=== PATIENT | female | born 1940 | race Caucasian/White ===

== ENCOUNTER 2020-06-17 20:35 | Inpatient (IN) | payer MEDICARE, BC ==
[2020-06-17] MEDS ORDERED: Acetaminophen 325 MG Tab PO PRN (22:02)
[2020-06-17] MEDS ORDERED: Ondansetron 4 MG/2 ML SDV IV PRN (22:02)
[2020-06-17] MEDS ORDERED: Sodium Chloride 0.9% 10 ML Syringe FLUSH PRN ×2 (22:02)
--- NOTE | 2020-06-17 23:45 | PCM.HP.2 ---
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 Patient lives at a long-term care facility in [place], [place] and presented to the [facility] emergency department with complaints of cough, shortness of breath, fatigue, body aches, and increased bilateral lower extremity swelling over the last 5 days. Patient did develop a fever today. Patient is a poor historian so history was mainly obtained through history from [facility] chart. Patient presented to the emergency department with her . Patient was requiring 2 L nasal cannula and swab for COVID-19. That was positive. There was concern that she may worsen overnight and require BiPAP or even ventilatory support, so we worked contacted for transfer. Patient was accepted in transfer. Patient maintain her oxygen saturations in route on 2 L. Chest x- ray showed minimal bilateral basilar atelectasis/consolidations. Of note, she was seen earlier in the week and went home on her home O2. She does use 2 L nasal cannula at bedtime. When patient arrived here she was kept in isolation and continued on 2 L nasal cannula. Bilateral Leg Pain Score (Numeric/FACES): 8 - Related Data Allergies/Adverse Reactions: Allergies Allergy/AdvReac Type Severity Reaction Status Date / Time acyclovir Allergy Other Verified 06/17/20 21:57 Home Medications: Home Meds Albuterol [Take Home: Albuterol 18 GM, 1 INH Pack] 1 puff INH Q4HR PRN 06/18/20 [History] Aspirin [Aspirin EC] 81 mg PO DAILY 06/18/20 [History] Bumetanide [Bumex] 2 mg PO BID 06/18/20 [History] Cyanocobalamin (Vitamin B-12) [Vitamin B-12] 1,000 mcg PO DAILY 06/18/20 [History] Famotidine [Pepcid] 20 mg PO DAILY 06/18/20 [History] Fluticasone/Umeclidin/Vilanter [Trelegy Ellipta 100-62.5-25 MCG] 1 puff INH DAILY 06/18/20 [History] Gabapentin [Neurontin] 200 mg PO BEDTIME 06/18/20 [History] Levothyroxine 75 mcg PO ACBREAKFAST 06/18/20 [History] Losartan [Cozaar] 50 mg PO DAILY 06/18/20 [History] Mirtazapine 15 mg PO BEDTIME 06/18/20 [History] Olopatadine [Pataday 0.2% Ophth Soln] 2 drop EYEBOTH BID PRN 06/18/20 [History] estradioL [Estradiol] 1 mg PO DAILY 06/18/20 [History] Past Medical History HEENT History: Reports: None Cardiovascular History: Reports: Bypass, CAD, Heart Failure, High Cholesterol Respiratory History: Reports: COPD Gastrointestinal History: Reports: None Genitourinary History: Reports: None LMP (Approximate): Menopausal Musculoskeletal History: Reports: None Neurological History: Reports: Other (See Below) (Encephalopathy secondary to viral meningitis) Psychiatric History: Reports: None Endocrine/Metabolic History: Reports: Hypothyroidism Hematologic History: Reports: None Immunologic History: Reports: None - Past Surgical History Head Surgeries/Procedures: Reports: None Female Surgical History: Reports: Hysterectomy Social & Family History - Family History Family Medical History: Unobtainable - Tobacco Use Smoking Status *Q: Former Smoker - Alcohol Use Alcohol Use History: No H&P Review of Systems - Review of Systems: Review Of Systems: Comprehensive ROS is negative, except as noted in HPI. Exam - Exam Exam: See Below - Vital Signs Vital Signs: Last Vital Signs Temp 98.3 Pulse 69 Resp 20 BP 136/62 Pulse Ox 94 L 06/17/20 22:58 Weight: 85.02 kg - Exam Quality Assessment: Supplemental Oxygen General: Alert, Oriented, 4 HEENT: Conjunctiva Clear, Mucosa Moist & [place], Normal Nasal Septum Neck: Supple, Trachea Midline, 2 Lungs: Rales (Bibasilar). No: Normal Respiratory Effort (Mild increased respiratory rate) Cardiovascular: Regular Rate, Regular Rhythm GI/Abdominal Exam: Normal Bowel Sounds, Soft, No Distention Extremities: Normal Inspection, Normal Range of Motion, Non-Tender, No Pedal Edema, Normal Capillary Refill Skin: Warm, Dry, Intact Neuro Extensive - Mental Status: Alert, Normal Mood/Affect, Disorientation to Place, Disorientation to Time. No: Normal Cognition, Memory Intact Neuro Extensive - Motor, Sensory, Reflexes: CN II-XII Intact Psychiatric: Alert, Normal Affect, Normal Mood - Patient Data Lab Results Last 24 hrs: Laboratory Results - last 24 hr 06/17/20 06/17/20 06/17/20 Range/Units 22:36 22:36 22:36 WBC (3.98-10.04) K/mm3 RBC (3.98-5.22) M/mm3 Hgb (11.2-15.7) gm/dl Hct (34.1-44.9) % MCV (79.4-94.8) fl MCH (25.6-32.2) pg MCHC (32.2-35.5) g/dl RDW Std Deviation (36.4-46.3) fL Plt Count (182-369) K/mm3 MPV (9.4-12.3) fl Neut % (Auto) (34.0-71.1) % Lymph % (Auto) (19.3-51.7) % [place] % (Auto) (4.7-12.5) % Eos % (Auto) (0.7-5.8) Baso % (Auto) (0.1-1.2) % Neut # (Auto) (1.56-6.13) K/mm3 Lymph # (Auto) (1.18-3.74) K/mm3 [place] # (Auto) (0.24-0.36) K/mm3 Eos # (Auto) (0.04-0.36) K/mm3 Baso # (Auto) (0.01-0.08) K/mm3 PT 11.1 (9.7-11.7) SECONDS INR 1.04 APTT 26 (22-31) SECONDS D-Dimer, Quantitative 0.71 H (0.19-0.50) mg/L Sodium 135 L (136-145) mEq/L Potassium 4.0 (3.5-5.1) mEq/L Chloride 100 (98-107) mEq/L Carbon Dioxide 24 (21-32) mEq/L Anion Gap 15.0 (5-15) BUN 14 (7-18) mg/dL Creatinine 1.6 H (0.55-1.02) mg/dL Est Cr Clr Drug Dosing TNP Estimated GFR (MDRD) 31 (>60) mL/min BUN/Creatinine Ratio 8.8 L (14-18) Glucose 135 H (83-115) mg/dL Calcium 8.1 L (8.5-10.1) mg/dL Ferritin 241 (8-252) ng/ml Total Bilirubin 0.2 (0.2-1.0) mg/dL Direct Bilirubin 0.10 (0.0-0.2) mg/dl Indirect Bilirubin 0.10 AST 38 H (15-37) U/L ALT 43 (14-59) U/L Alkaline Phosphatase 54 (46-116) U/L Lactate Dehydrogenase 228 (81-234) U/L C-Reactive Protein 4.4 H* (<1.0) mg/dL NT-Pro-B Natriuret Pep (0-450) pg/mL Total Protein 6.9 (6.4-8.2) g/dl Albumin 3.0 L (3.4-5.0) g/dl Globulin 3.9 gm/dL Albumin/Globulin Ratio 0.8 L (1-2) 06/17/20 06/17/20 Range/Units 22:36 22:36 WBC 4.11 (3.98-10.04) K/mm3 RBC 3.61 L (3.98-5.22) M/mm3 Hgb 11.2 (11.2-15.7) gm/dl Hct 35.2 (34.1-44.9) % MCV 97.5 H (79.4-94.8) fl MCH 31.0 (25.6-32.2) pg MCHC 31.8 L (32.2-35.5) g/dl RDW Std Deviation 47.1 H (36.4-46.3) fL Plt Count 172 L (182-369) K/mm3 MPV 8.8 L (9.4-12.3) fl Neut % (Auto) 70.0 (34.0-71.1) % Lymph % (Auto) 24.3 (19.3-51.7) % [place] % (Auto) 5.1 (4.7-12.5) % Eos % (Auto) 0.2 L (0.7-5.8) Baso % (Auto) 0.2 (0.1-1.2) % Neut # (Auto) 2.87 (1.56-6.13) K/mm3 Lymph # (Auto) 1.00 L (1.18-3.74) K/mm3 [place] # (Auto) 0.21 L (0.24-0.36) K/mm3 Eos # (Auto) 0.01 L (0.04-0.36) K/mm3 Baso # (Auto) 0.01 (0.01-0.08) K/mm3 PT (9.7-11.7) SECONDS INR APTT (22-31) SECONDS D-Dimer, Quantitative (0.19-0.50) mg/L Sodium (136-145) mEq/L Potassium (3.5-5.1) mEq/L Chloride (98-107) mEq/L Carbon Dioxide (21-32) mEq/L Anion Gap (5-15) BUN (7-18) mg/dL Creatinine (0.55-1.02) mg/dL Est Cr Clr Drug Dosing Estimated GFR (MDRD) (>60) mL/min BUN/Creatinine Ratio (14-18) Glucose (83-115) mg/dL Calcium (8.5-10.1) mg/dL Ferritin (8-252) ng/ml Total Bilirubin (0.2-1.0) mg/dL Direct Bilirubin (0.0-0.2) mg/dl Indirect Bilirubin AST (15-37) U/L ALT (14-59) U/L Alkaline Phosphatase (46-116) U/L Lactate Dehydrogenase (81-234) U/L C-Reactive Protein (<1.0) mg/dL NT-Pro-B Natriuret Pep 431 (0-450) pg/mL Total Protein (6.4-8.2) g/dl Albumin (3.4-5.0) g/dl Globulin gm/dL Albumin/Globulin Ratio (1-2) Result Diagrams: 06/17/20 22:36 06/17/20 22:36 EKG INTERPRETATION EKG Date: 06/17/20 Rhythm: NSR Rate (Beats/Min): 63 [place]: Normal P-Wave: Present QRS: Normal ST-T: Normal QT: Normal Sepsis Event Note - Focused Exam Vital Signs: Vital Signs Pulse Ox 06/17/20 22:58 94 L - Problem List (1) Pneumonia due to COVID-19 virus SNOMED Code(s): 082817471906693486 ICD Code: U07.1 - COVID-19; J12.89 - OTHER VIRAL PNEUMONIA Status: Acute Current Visit: Yes (2) CHF (congestive heart failure) SNOMED Code(s): 50885389 ICD Code: I50.9 - HEART FAILURE, UNSPECIFIED Status: Acute Current Visit: Yes (3) CAD (coronary artery disease) SNOMED Code(s): 43991424 ICD Code: I25.10 - ATHSCL HEART DISEASE OF [place] CORONARY ARTERY W/O ANG PCTRS Status: Acute Current Visit: Yes (4) COPD (chronic obstructive pulmonary disease) SNOMED Code(s): 90679974 ICD Code: J44.9 - CHRONIC OBSTRUCTIVE PULMONARY DISEASE, UNSPECIFIED Status: Acute Current Visit: Yes (5) Hypothyroidism SNOMED Code(s): 33019705 ICD Code: E03.9 - HYPOTHYROIDISM, UNSPECIFIED Status: Acute Current Visit: Yes (6) Memory loss due to medical condition SNOMED Code(s): 08464015 ICD Code: R41.3 - OTHER AMNESIA Status: Acute Current Visit: Yes (7) Hyperlipemia SNOMED Code(s): 69664057 ICD Code: E78.5 - HYPERLIPIDEMIA, UNSPECIFIED Status: Acute Current Visit: Yes (8) CVA, old, speech/language deficit SNOMED Code(s): 414144662 ICD Code: I69.328 - OTH SPEECH/LANG DEFICITS FOLLOWING CEREBRAL INFARCTION Status: Acute Current Visit: Yes Problem List Initiated/Reviewed/Updated: Yes Orders Last 24hrs: Active Orders 24 hr Category Date Time Status Patient Status [ADT] Routine ADT 06/17/20 22:11 Active Cardiac Monitoring [RC] . DIRECTED Care 06/17/20 22:02 Active EKG Documentation Completion [RC] STAT Care 06/17/20 22:17 Active Oxygen Therapy [RC] PRN Care 06/17/20 22:11 Active Pulse Oximetry [RC] CONTINUOUS Care 06/17/20 22:15 Active RT Incentive Spirometry [RC] ASDIRECTED Care 06/17/20 22:02 Active Up With Assistance [RC] ASDIRECTED Care 06/17/20 22:02 Active VTE/DVT Education [RC] PER UNIT ROUTINE Care 06/17/20 22:11 Active Verify Patient Consent Obtain [RC] ASDIRECTED Care 06/17/20 22:11 Active Vital Signs [RC] Q4H Care 06/17/20 22:11 Active Respiratory Care Assess and Treatment [CONS] Routine Cons 06/17/20 22:02 Active Heart Healthy Diet [DIET] Diet 06/17/20 Dinner Active Chest 1V Frontal [CR] Stat Exams 06/17/20 22:17 Taken ABO/RH TYPE [BBK] Routine Lab 06/17/20 22:36 Received BLOOD GAS ARTERIAL [BG] Stat Lab 06/17/20 22:11 Ordered CULTURE BLOOD [BC] Stat Lab 06/17/20 23:24 Received FRESH FROZEN PLASMA [BBK] Routine Lab 06/17/20 22:36 Received LACTIC ACID [CHEM] Stat Lab 06/17/20 23:30 Received PROCALCITONIN [REF] Stat Lab 06/17/20 22:02 Ordered UA W/TALYA RFLX IF INDICATED [URIN] Routine Lab 06/17/20 22:02 Ordered Acetaminophen [TylenoL] Med 06/17/20 22:02 Active 650 mg PO Q4H PRN Enoxaparin [Lovenox] Med 06/18/20 09:00 Pending 40 mg SUBCUT DAILY Ondansetron [Zofran] Med 06/17/20 22:02 Active 4 mg IV Q4H PRN Remdesivir (Eua) [Remdesivir (EUA)] 100 mg Med 06/18/20 09:00 Pending Sodium Chloride 0.9% [Normal Saline] 100 ml IV DAILY Sodium Chloride 0.9% [Saline Flush] Med 06/17/20 22:02 Active 10 ml FLUSH ASDIRECTED PRN dexAMETHasone [Dexamethasone] Med 06/18/20 09:00 Active 6 mg IVPUSH DAILY Isolation [COMM] Stat Oth 06/17/20 22:11 Ordered RT Acapella [RESPCARE] Routine Oth 06/17/20 22:02 Active Saline Lock Insert [OM.PC] Routine Oth 06/17/20 22:02 Ordered Transfuse Fresh Frozen Plasma [COMM] Routine Oth 06/17/20 22:11 Ordered Resuscitation Status Routine Resus Stat 06/17/20 22:02 Ordered Medication Orders Acetaminophen (Tylenol) 650 mg PO Q4H PRN PRN Reason: Pain (Mild 1-3)/fever Dexamethasone (Dexamethasone) 6 mg IVPUSH DAILY [facility] Stop: 06/27/20 09:01 Enoxaparin Sodium (Lovenox) 40 mg SUBCUT DAILY [facility] Remdesivir 100 mg/ Sodium (Chloride) 100 mls @ 100 mls/hr IV DAILY [facility] Stop: 06/22/20 22:16 Ondansetron HCl (Zofran) 4 mg IV Q4H PRN PRN Reason: Nausea/Vomiting Sodium Chloride (Saline Flush) 10 ml FLUSH ASDIRECTED PRN PRN Reason: Keep Vein Open Assessment/Plan Comment:: 79-year-old female with COPD transferred from [facility] as a direct admit with pneumonia secondary to COVID-19 * Patient requiring 2 L nasal cannula to keep her oxygen saturations in the 90s. * She is on 2 L nasal cannula when she sleeps at home due to COPD and CHF. * Received first dose of dexamethasone 6 mg and Lovenox 40 mg at [facility]. * Minimal respiratory distress * Initial WBC 4.11, INR 1.04, d-dimer 0.71, lactic acid 1.1, CRP 4.4, proBNP 431, albumin 3.0, ABG: pH 7.42, PCO2 of 35.5, PO2 of 71.0, HCO3 22.6, O2 saturation 93.4% on 2 L FiO2 CHF/coronary artery disease/hypertension * BNP normal on admission. * Blood pressure well controlled initially. * Bumex 2 mg twice daily, aspirin 81 mg daily, losartan 50 mg daily * No chest pain Acute versus acute on chronic renal insufficiency * BUN 14, creatinine 1.6, estimated GFR 31, sodium 135 * Unknown history of kidney disease Hypothyroidism Postmenopausal symptoms * Levothyroxine 75 mcg daily * Estradiol 1 mg daily Plan * Admit to medical floor on telemetry and continuous pulse oximetry. * Start COVID specific treatment of remdesivir, convalescent plasma, and dexamethasone. * Follow CBC, CMP, d-dimer, CRP * Continue home meds except Bumex * IV Lasix as needed * FiO2 to keep SPO2 greater than 87% and less than 95% * Continue home rate of FiO2 at 2 L nasal cannula while asleep * Consider echocardiogram. VTE prophylaxis with Lovenox CODE STATUS: Full code Disposition: Admit to floor for treatment of pneumonia secondary to COVID-19 - Mortality Measure Prognosis:: Poor
[2020-06-18] MEDS ORDERED: Sodium Chloride 0.9% 250 ML ONE (08:14)
[2020-06-18] MEDS: Enoxaparin 40 MG/0.4 ML Syringe SUBCUT SCH (08:49)
[2020-06-18] MEDS ORDERED: REMDESIVIR (EUA) 100 MG in Sodium Chloride 0.9% 100 ML IV SCH (09:00)
[2020-06-18] MEDS ORDERED: Dexamethasone 10 MG/ML SDV IVPUSH SCH (09:00)
[2020-06-18] MEDS ORDERED: Furosemide 20 MG/2 ML VIAL IVPUSH ONE (09:34)
[2020-06-18] MEDS ORDERED: Albuterol 6.7 GM Inhaler INH PRN (12:16)
--- NOTE | 2020-06-18 16:18 | PCM.PN ---
- General Info Date of Service: 06/18/20 Admission Dx/Problem (Free Text): Admission Diagnosis/Problem Admission Diagnosis/Problem Viral pneumonia Subjective Update: Patient did well overnight and this morning. She has been weaned down to 1 L nasal cannula. Functional Status: Reports: Pain Controlled - Review of Systems General: Reports: No Symptoms HEENT: Reports: No Symptoms Pulmonary: Reports: Cough Cardiovascular: Reports: No Symptoms Gastrointestinal: Reports: No Symptoms Skin: Reports: No Symptoms Neurological: Reports: Confusion Psychiatric: Reports: Confusion - Patient Data Vitals - Most Recent: Last Vital Signs Temp 97.2 F 06/18/20 09:54 Pulse 74 06/18/20 09:54 Resp 20 06/18/20 09:54 BP 105/60 06/18/20 14:00 Pulse Ox 95 06/18/20 16:00 Weight - Most Recent: 85.02 kg I&O - Last 24 Hours: Intake & Output 06/18/20 06/18/20 06/18/20 06:59 14:59 22:59 Intake Total 200 390 180 Output Total 1100 1250 Balance -900 -860 180 Lab Results Last 24 Hours: Laboratory Results - last 24 hr 06/17/20 06/17/20 06/17/20 Range/Units 22:11 22:36 22:36 WBC (3.98-10.04) K/mm3 RBC (3.98-5.22) M/mm3 Hgb (11.2-15.7) gm/dl Hct (34.1-44.9) % MCV (79.4-94.8) fl MCH (25.6-32.2) pg MCHC (32.2-35.5) g/dl RDW Std Deviation (36.4-46.3) fL Plt Count (182-369) K/mm3 MPV (9.4-12.3) fl Neut % (Auto) (34.0-71.1) % Lymph % (Auto) (19.3-51.7) % [place] % (Auto) (4.7-12.5) % Eos % (Auto) (0.7-5.8) Baso % (Auto) (0.1-1.2) % Neut # (Auto) (1.56-6.13) K/mm3 Lymph # (Auto) (1.18-3.74) K/mm3 [place] # (Auto) (0.24-0.36) K/mm3 Eos # (Auto) (0.04-0.36) K/mm3 Baso # (Auto) (0.01-0.08) K/mm3 PT 11.1 (9.7-11.7) SECONDS INR 1.04 APTT 26 (22-31) SECONDS D-Dimer, Quantitative 0.71 H (0.19-0.50) mg/L Puncture Site Lt radial ABG pH 7.42 (7.35-7.45) ABG pCO2 35.5 (35.0-45.0) mmHg ABG pO2 71.0 L (80.0-100.0) mmHg ABG HCO3 22.6 (22.0-26.0) meq/L ABG O2 Saturation 93.4 L (96.0-97.0) % ABG Base Excess -1.0 (-2-2.0) Ted Test Positive O2 Delivery Device Nasal cannula Oxygen Flow Rate 2.0 Sodium (136-145) mEq/L Potassium (3.5-5.1) mEq/L Chloride (98-107) mEq/L Carbon Dioxide (21-32) mEq/L Anion Gap (5-15) BUN (7-18) mg/dL Creatinine (0.55-1.02) mg/dL Est Cr Clr Drug Dosing Estimated GFR (MDRD) (>60) mL/min BUN/Creatinine Ratio (14-18) Glucose (83-115) mg/dL Lactic Acid (0.4-2.0) mmol/L Calcium (8.5-10.1) mg/dL Ferritin 241 (8-252) ng/ml Total Bilirubin (0.2-1.0) mg/dL Direct Bilirubin (0.0-0.2) mg/dl Indirect Bilirubin AST (15-37) U/L ALT (14-59) U/L Alkaline Phosphatase (46-116) U/L Lactate Dehydrogenase (81-234) U/L C-Reactive Protein (<1.0) mg/dL NT-Pro-B Natriuret Pep (0-450) pg/mL Total Protein (6.4-8.2) g/dl Albumin (3.4-5.0) g/dl Globulin gm/dL Albumin/Globulin Ratio (1-2) Urine Color (Yellow) Urine Appearance (Clear) Urine pH (5.0-8.0) Ur Specific Sinclair (1.005-1.030) Urine Protein (Negative) Urine Glucose (UA) (Negative) Urine Ketones (Negative) Urine Occult Blood (Negative) Urine Nitrite (Negative) Urine Bilirubin (Negative) Urine Urobilinogen (0.2-1.0) Ur Leukocyte Esterase (Negative) Blood Type 06/17/20 06/17/20 06/17/20 Range/Units 22:36 22:36 22:36 WBC 4.11 (3.98-10.04) K/mm3 RBC 3.61 L (3.98-5.22) M/mm3 Hgb 11.2 (11.2-15.7) gm/dl Hct 35.2 (34.1-44.9) % MCV 97.5 H (79.4-94.8) fl MCH 31.0 (25.6-32.2) pg MCHC 31.8 L (32.2-35.5) g/dl RDW Std Deviation 47.1 H (36.4-46.3) fL Plt Count 172 L (182-369) K/mm3 MPV 8.8 L (9.4-12.3) fl Neut % (Auto) 70.0 (34.0-71.1) % Lymph % (Auto) 24.3 (19.3-51.7) % [place] % (Auto) 5.1 (4.7-12.5) % Eos % (Auto) 0.2 L (0.7-5.8) Baso % (Auto) 0.2 (0.1-1.2) % Neut # (Auto) 2.87 (1.56-6.13) K/mm3 Lymph # (Auto) 1.00 L (1.18-3.74) K/mm3 [place] # (Auto) 0.21 L (0.24-0.36) K/mm3 Eos # (Auto) 0.01 L (0.04-0.36) K/mm3 Baso # (Auto) 0.01 (0.01-0.08) K/mm3 PT (9.7-11.7) SECONDS INR APTT (22-31) SECONDS D-Dimer, Quantitative (0.19-0.50) mg/L Puncture Site ABG pH (7.35-7.45) ABG pCO2 (35.0-45.0) mmHg ABG pO2 (80.0-100.0) mmHg ABG HCO3 (22.0-26.0) meq/L ABG O2 Saturation (96.0-97.0) % ABG Base Excess (-2-2.0) Ted Test O2 Delivery Device Oxygen Flow Rate Sodium 135 L (136-145) mEq/L Potassium 4.0 (3.5-5.1) mEq/L Chloride 100 (98-107) mEq/L Carbon Dioxide 24 (21-32) mEq/L Anion Gap 15.0 (5-15) BUN 14 (7-18) mg/dL Creatinine 1.6 H (0.55-1.02) mg/dL Est Cr Clr Drug Dosing TNP Estimated GFR (MDRD) 31 (>60) mL/min BUN/Creatinine Ratio 8.8 L (14-18) Glucose 135 H (83-115) mg/dL Lactic Acid (0.4-2.0) mmol/L Calcium 8.1 L (8.5-10.1) mg/dL Ferritin (8-252) ng/ml Total Bilirubin 0.2 (0.2-1.0) mg/dL Direct Bilirubin 0.10 (0.0-0.2) mg/dl Indirect Bilirubin 0.10 AST 38 H (15-37) U/L ALT 43 (14-59) U/L Alkaline Phosphatase 54 (46-116) U/L Lactate Dehydrogenase 228 (81-234) U/L C-Reactive Protein 4.4 H* (<1.0) mg/dL NT-Pro-B Natriuret Pep (0-450) pg/mL Total Protein 6.9 (6.4-8.2) g/dl Albumin 3.0 L (3.4-5.0) g/dl Globulin 3.9 gm/dL Albumin/Globulin Ratio 0.8 L (1-2) Urine Color (Yellow) Urine Appearance (Clear) Urine pH (5.0-8.0) Ur Specific Sinclair (1.005-1.030) Urine Protein (Negative) Urine Glucose (UA) (Negative) Urine Ketones (Negative) Urine Occult Blood (Negative) Urine Nitrite (Negative) Urine Bilirubin (Negative) Urine Urobilinogen (0.2-1.0) Ur Leukocyte Esterase (Negative) Blood Type A NEGATIVE 06/17/20 06/17/20 06/18/20 Range/Units 22:36 23:30 00:00 WBC (3.98-10.04) K/mm3 RBC (3.98-5.22) M/mm3 Hgb (11.2-15.7) gm/dl Hct (34.1-44.9) % MCV (79.4-94.8) fl MCH (25.6-32.2) pg MCHC (32.2-35.5) g/dl RDW Std Deviation (36.4-46.3) fL Plt Count (182-369) K/mm3 MPV (9.4-12.3) fl Neut % (Auto) (34.0-71.1) % Lymph % (Auto) (19.3-51.7) % [place] % (Auto) (4.7-12.5) % Eos % (Auto) (0.7-5.8) Baso % (Auto) (0.1-1.2) % Neut # (Auto) (1.56-6.13) K/mm3 Lymph # (Auto) (1.18-3.74) K/mm3 [place] # (Auto) (0.24-0.36) K/mm3 Eos # (Auto) (0.04-0.36) K/mm3 Baso # (Auto) (0.01-0.08) K/mm3 PT (9.7-11.7) SECONDS INR APTT (22-31) SECONDS D-Dimer, Quantitative (0.19-0.50) mg/L Puncture Site ABG pH (7.35-7.45) ABG pCO2 (35.0-45.0) mmHg ABG pO2 (80.0-100.0) mmHg ABG HCO3 (22.0-26.0) meq/L ABG O2 Saturation (96.0-97.0) % ABG Base Excess (-2-2.0) Ted Test O2 Delivery Device Oxygen Flow Rate Sodium (136-145) mEq/L Potassium (3.5-5.1) mEq/L Chloride (98-107) mEq/L Carbon Dioxide (21-32) mEq/L Anion Gap (5-15) BUN (7-18) mg/dL Creatinine (0.55-1.02) mg/dL Est Cr Clr Drug Dosing Estimated GFR (MDRD) (>60) mL/min BUN/Creatinine Ratio (14-18) Glucose (83-115) mg/dL Lactic Acid 1.1 (0.4-2.0) mmol/L Calcium (8.5-10.1) mg/dL Ferritin (8-252) ng/ml Total Bilirubin (0.2-1.0) mg/dL Direct Bilirubin (0.0-0.2) mg/dl Indirect Bilirubin AST (15-37) U/L ALT (14-59) U/L Alkaline Phosphatase (46-116) U/L Lactate Dehydrogenase (81-234) U/L C-Reactive Protein (<1.0) mg/dL NT-Pro-B Natriuret Pep 431 (0-450) pg/mL Total Protein (6.4-8.2) g/dl Albumin (3.4-5.0) g/dl Globulin gm/dL Albumin/Globulin Ratio (1-2) Urine Color Yellow (Yellow) Urine Appearance Clear (Clear) Urine pH 6.5 (5.0-8.0) Ur Specific Sinclair 1.020 (1.005-1.030) Urine Protein Negative (Negative) Urine Glucose (UA) Negative (Negative) Urine Ketones Negative (Negative) Urine Occult Blood Negative (Negative) Urine Nitrite Negative (Negative) Urine Bilirubin Negative (Negative) Urine Urobilinogen 0.2 (0.2-1.0) Ur Leukocyte Esterase Negative (Negative) Blood Type Aj Results Last 24 Hours: Microbiology 06/17/20 23:24 Anaerobic Blood Culture - Final Blood Med Orders - Current: Current Medications Acetaminophen (Tylenol) 650 mg PO Q4H PRN PRN Reason: Pain (Mild 1-3)/fever Albuterol (Proventil Hfa) 0 gm INH Q4H PRN PRN Reason: Shortness of Breath Aspirin (Halfprin) 81 mg PO DAILY [facility] Cyanocobalamin (Vitamin B12) 1,000 mcg PO DAILY [facility] Dexamethasone (Dexamethasone) 6 mg PO DAILY [facility] Stop: 06/27/20 09:01 Enoxaparin Sodium (Lovenox) 40 mg SUBCUT DAILY [facility] Last Admin: 10/07/20 08:49 Dose: 40 mg Documented by: Estradiol (Estradiol) 1 mg PO DAILY [facility] Gabapentin (Neurontin) 200 mg PO BEDTIME [facility] Remdesivir 100 mg/ Sodium (Chloride) 100 mls @ 100 mls/hr IV Q24H [facility] Stop: 06/21/20 22:59 Levothyroxine Sodium (Levothyroxine) 75 mcg PO ACBREAKFAST [facility] Losartan Potassium (Cozaar) 50 mg PO DAILY [facility] Mirtazapine (Remeron) 15 mg PO BEDTIME [facility] Ondansetron HCl (Zofran) 4 mg IV Q4H PRN PRN Reason: Nausea/Vomiting Fluticasone/Umeclidin/Vilanter Inhaler 0 each INH DAILY [facility] Sodium Chloride (Saline Flush) 10 ml FLUSH ASDIRECTED PRN PRN Reason: Keep Vein Open Discontinued Medications Dexamethasone (Dexamethasone) 6 mg IVPUSH DAILY [facility] Stop: 06/27/20 09:01 Last Admin: 06/18/20 08:50 Dose: 6 mg Documented by: Furosemide (Lasix) 20 mg IVPUSH NOW ONE Stop: 06/18/20 09:35 Last Admin: 06/18/20 09:53 Dose: 20 mg Documented by: Remdesivir 200 mg/ Sodium (Chloride) 250 mls @ 250 mls/hr IV ONETIME ONE Stop: 06/17/20 22:03 Last Admin: 06/17/20 23:25 Dose: 250 mls/hr Documented by: Remdesivir 100 mg/ Sodium (Chloride) 100 mls @ 100 mls/hr IV DAILY [facility] Stop: 06/22/20 22:16 Sodium Chloride (Normal Saline) Confirm Administered Dose 250 mls @ as directed .ROUTE .STK-MED ONE Stop: 06/18/20 08:15 Last Admin: 06/18/20 08:56 Dose: 50 mls/hr Documented by: Sodium Chloride (Saline Flush) 10 ml FLUSH ASDIRECTED PRN PRN Reason: Keep Vein Open - Exam Quality Assessment: Supplemental Oxygen, Urine Catheter General: Alert, Oriented HEENT: Pupils Equal, Mucous Membr. Moist/[place] Lungs: Normal Respiratory Effort, Rales (Bibasilar) Cardiovascular: Regular Rate, Regular Rhythm GI/Abdominal Exam: Normal Bowel Sounds, Soft, No Distention Extremities: Normal Inspection, No Pedal Edema, Normal Capillary Refill Skin: Warm, Dry, Intact Neurological: No New Focal Deficit Psy/Mental Status: Alert Sepsis Event Note - Evaluation Sepsis Screening Result: No Definite Risk - Focused Exam Vital Signs: Vital Signs Temp Pulse Pulse Resp BP BP Pulse Ox 06/18/20 16:00 06/18/20 14:16 95 06/18/20 14:02 96 06/18/20 14:00 105/60 92 L 06/18/20 13:43 105/60 93 L 06/18/20 13:42 85 L 06/18/20 13:00 89 L 06/18/20 12:00 89 L 06/18/20 11:00 95 06/18/20 10:00 94 L 06/18/20 09:54 97.2 F 74 20 140/63 97 06/18/20 09:53 140/63 94 L 06/18/20 09:51 94 L 06/18/20 09:38 06/18/20 09:01 93 L 06/18/20 09:00 91 L 06/18/20 08:43 56 L 135/70 94 L 06/18/20 08:42 97.2 F 66 50 L 18 135/70 92 L 06/18/20 08:41 79 99 06/18/20 08:01 143/59 H 06/18/20 07:15 47 L 92 L 06/18/20 07:00 55 L 96 06/18/20 06:15 75 94 L 06/18/20 05:00 72 96 Pulse Ox 06/18/20 16:00 95 06/18/20 14:16 06/18/20 14:02 06/18/20 14:00 06/18/20 13:43 06/18/20 13:42 06/18/20 13:00 06/18/20 12:00 06/18/20 11:00 06/18/20 10:00 06/18/20 09:54 06/18/20 09:53 06/18/20 09:51 06/18/20 09:38 94 L 06/18/20 09:01 06/18/20 09:00 06/18/20 08:43 06/18/20 08:42 06/18/20 08:41 06/18/20 08:01 06/18/20 07:15 06/18/20 07:00 06/18/20 06:15 06/18/20 05:00 - Problem List & Annotations (1) Pneumonia due to COVID-19 virus SNOMED Code(s): 868363272826642555 Code(s): U07.1 - COVID-19; J12.89 - OTHER VIRAL PNEUMONIA Status: Acute Current Visit: Yes (2) CHF (congestive heart failure) SNOMED Code(s): 92870784 Code(s): I50.9 - HEART FAILURE, UNSPECIFIED Status: Acute Current Visit: Yes (3) CAD (coronary artery disease) SNOMED Code(s): 56865613 Code(s): I25.10 - ATHSCL HEART DISEASE OF [place] CORONARY ARTERY W/O ANG PCTRS Status: Acute Current Visit: Yes (4) COPD (chronic obstructive pulmonary disease) SNOMED Code(s): 51026066 Code(s): J44.9 - CHRONIC OBSTRUCTIVE PULMONARY DISEASE, UNSPECIFIED Status: Acute Current Visit: Yes (5) Hypothyroidism SNOMED Code(s): 47747730 Code(s): E03.9 - HYPOTHYROIDISM, UNSPECIFIED Status: Acute Current Visit: Yes (6) Memory loss due to medical condition SNOMED Code(s): 74442472 Code(s): R41.3 - OTHER AMNESIA Status: Acute Current Visit: Yes (7) Hyperlipemia SNOMED Code(s): 74461667 Code(s): E78.5 - HYPERLIPIDEMIA, UNSPECIFIED Status: Acute Current Visit: Yes (8) CVA, old, speech/language deficit SNOMED Code(s): 756685225 Code(s): I69.328 - OTH SPEECH/LANG DEFICITS FOLLOWING CEREBRAL INFARCTION Status: Acute Current Visit: Yes - Problem List Review Problem List Initiated/Reviewed/Updated: Yes - My Orders Last 24 Hours: My Active Orders 06/17/20 Dinner Heart Healthy Diet [DIET] 06/17/20 22:02 RT Incentive Spirometry [RC] ASDIRECTED Up With Assistance [RC] ASDIRECTED Respiratory Care Assess and Treatment [CONS] Routine PROCALCITONIN [REF] Stat Acetaminophen [TylenoL] 650 mg PO Q4H PRN Ondansetron [Zofran] 4 mg IV Q4H PRN Sodium Chloride 0.9% [Saline Flush] 10 ml FLUSH ASDIRECTED PRN RT Acapella [RESPCARE] Routine Saline Lock Insert [OM.PC] Routine Resuscitation Status Routine 06/17/20 22:11 Patient Status [ADT] Routine Oxygen Therapy [RC] PRN VTE/DVT Education [RC] Vital Signs [RC] Q4HR Isolation [COMM] Stat Transfuse Fresh Frozen Plasma [COMM] Routine 06/17/20 22:17 Chest 1V Frontal [CR] Stat 06/17/20 23:24 CULTURE BLOOD [BC] Stat 06/17/20 23:45 [place]una Catheter Insertion [Insert Urinary Catheter] [OM.PC] Q24H 06/18/20 04:57 Urinary Catheter Assessment [RC] ASDIRECTED 06/18/20 09:00 Enoxaparin [Lovenox] 40 mg SUBCUT DAILY 06/18/20 10:39 PT Evaluation and Treatment [CONS] Routine 06/18/20 12:16 Albuterol [Proventil HFA] 0 gm INH Q4H PRN 06/18/20 12:30 Patient's Own Medication [Ptom] 0 each INH DAILY 06/18/20 21:00 Gabapentin [Neurontin] 200 mg PO BEDTIME Mirtazapine [Remeron] 15 mg PO BEDTIME 06/18/20 22:00 Remdesivir (Eua) [Remdesivir (EUA)] 100 mg Sodium Chloride 0.9% [Normal Saline] 100 ml IV Q24H 06/19/20 05:11 C-REACTIVE PROTEIN [CHEM] AM CBC WITH AUTO DIFF [HEME] AM CMP [COMPREHENSIVE METABOLIC PN,CMP] [CHEM] AM DD [D-DIMER QUANTITATIVE] [COAG] AM MAGNESIUM [CHEM] AM PHOSPHORUS [CHEM] AM 06/19/20 06:00 Levothyroxine 75 mcg PO ACBREAKFAST 06/19/20 09:00 Aspirin [Halfprin] 81 mg PO DAILY Cyanocobalamin (Vitamin B12) [Vitamin B12] 1,000 mcg PO DAILY Losartan [Cozaar] 50 mg PO DAILY dexAMETHasone 6 mg PO DAILY estradioL 1 mg PO DAILY - Plan Plan:: 06/17/2020 79-year-old female with COPD transferred from [facility] as a direct admit with pneumonia secondary to COVID-19 * Patient requiring 2 L nasal cannula to keep her oxygen saturations in the 90s. * She is on 2 L nasal cannula when she sleeps at home due to COPD and CHF. * Received first dose of dexamethasone 6 mg and Lovenox 40 mg at [facility]. * Minimal respiratory distress * Initial WBC 4.11, INR 1.04, d-dimer 0.71, lactic acid 1.1, CRP 4.4, proBNP 431, albumin 3.0, ABG: pH 7.42, PCO2 of 35.5, PO2 of 71.0, HCO3 22.6, O2 saturation 93.4% on 2 L FiO2 CHF/coronary artery disease/hypertension * BNP normal on admission. * Blood pressure well controlled initially. * Bumex 2 mg twice daily, aspirin 81 mg daily, losartan 50 mg daily * No chest pain Acute versus acute on chronic renal insufficiency * BUN 14, creatinine 1.6, estimated GFR 31, sodium 135 * Unknown history of kidney disease Hypothyroidism Postmenopausal symptoms * Levothyroxine 75 mcg daily * Estradiol 1 mg daily 06/18/2020 Pneumonia secondary to COVID-19 * Significant improvement in oxygenation * Day 2 of dexamethasone, remdesivir, CHF, CAD, hypertension * Blood pressure well controlled Acute versus chronic renal insufficiency * Recheck labs in the morning Plan * Continue COVID specific treatment of remdesivir, convalescent plasma, and dexamethasone. * Follow CBC, CMP, d-dimer, CRP * IV Lasix as needed * FiO2 to keep SPO2 greater than 87% and less than 95% * Continue home rate of FiO2 at 2 L nasal cannula while asleep * Echocardiogram in the morning VTE prophylaxis with Lovenox CODE STATUS: Full code Disposition: Admit to floor for treatment of pneumonia secondary to COVID-19
[2020-06-18] MEDS: VILANTER INH SCH (17:26)
[2020-06-18] MEDS: UMECLIDIN INH SCH (17:26)
[2020-06-18] MEDS: FLUTICASONE INH SCH (17:26)
[2020-06-18] MEDS: Mirtazapine 15 MG Tab PO SCH (20:53)
[2020-06-18] MEDS: Gabapentin 100 MG Cap PO SCH (20:53)
[2020-06-18] MEDS: REMDESIVIR (EUA) 100 MG in Sodium Chloride 0.9% 100 ML IV SCH (22:34)
[2020-06-19] MEDS: Levothyroxine 75 MCG Tab PO SCH (06:40)
[2020-06-19] MEDS: Losartan 25 MG Tab PO SCH (08:34)
[2020-06-19] MEDS: Enoxaparin 40 MG/0.4 ML Syringe SUBCUT SCH (08:34)
[2020-06-19] MEDS: Aspirin 81 MG Tab.EC PO SCH (08:35)
[2020-06-19] MEDS: Cyanocobalamin (Vitamin B12) 1,000 MCG Tab PO SCH (08:35)
[2020-06-19] MEDS: Estradiol 0.5 MG Tab PO SCH (08:35)
[2020-06-19] MEDS: Dexamethasone 4 MG Tab PO SCH (08:36)
[2020-06-19] MEDS: VILANTER INH SCH ×2 (09:20→16:53)
[2020-06-19] MEDS: UMECLIDIN INH SCH ×2 (09:20→16:53)
[2020-06-19] MEDS: FLUTICASONE INH SCH ×2 (09:20→16:53)
--- NOTE | 2020-06-19 15:42 | PCM.PN ---
- General Info Date of Service: 06/19/20 Admission Dx/Problem (Free Text): Admission Diagnosis/Problem Admission Diagnosis/Problem Viral pneumonia Subjective Update: Patient is doing better today appetite is good and breathing has improved. Less short of breath. Less cough. Functional Status: Reports: Pain Controlled - Review of Systems General: Reports: Fatigue HEENT: Reports: No Symptoms Pulmonary: Reports: Shortness of Breath, Cough Cardiovascular: Reports: No Symptoms Gastrointestinal: Reports: No Symptoms Musculoskeletal: Reports: No Symptoms Skin: Reports: No Symptoms Neurological: Reports: No Symptoms - Patient Data Vitals - Most Recent: Last Vital Signs Temp 98.4 F 06/19/20 12:00 Pulse 66 06/19/20 12:00 Resp 19 06/19/20 12:00 BP 129/62 06/19/20 12:00 Pulse Ox 85 L 06/19/20 12:00 Weight - Most Recent: 84.822 kg I&O - Last 24 Hours: Intake & Output 06/19/20 06/19/20 06/19/20 06:59 14:59 22:59 Intake Total 400 500 Output Total 350 285 Balance 50 215 Lab Results Last 24 Hours: Laboratory Results - last 24 hr 06/18/20 06/19/20 06/19/20 Range/Units 06:24 05:53 07:32 WBC 8.72 (3.98-10.04) K/mm3 RBC 3.84 L (3.98-5.22) M/mm3 Hgb 11.9 (11.2-15.7) gm/dl Hct 37.3 (34.1-44.9) % MCV 97.1 H (79.4-94.8) fl MCH 31.0 (25.6-32.2) pg MCHC 31.9 L (32.2-35.5) g/dl RDW Std Deviation 46.2 (36.4-46.3) fL Plt Count 184 (182-369) K/mm3 MPV 8.8 L (9.4-12.3) fl Neut % (Auto) 75.9 H (34.0-71.1) % Lymph % (Auto) 14.0 L (19.3-51.7) % [place] % (Auto) 9.6 (4.7-12.5) % Eos % (Auto) 0.2 L (0.7-5.8) Baso % (Auto) 0.1 (0.1-1.2) % Neut # (Auto) 6.61 H (1.56-6.13) K/mm3 Lymph # (Auto) 1.22 (1.18-3.74) K/mm3 [place] # (Auto) 0.84 H (0.24-0.36) K/mm3 Eos # (Auto) 0.02 L (0.04-0.36) K/mm3 Baso # (Auto) 0.01 (0.01-0.08) K/mm3 D-Dimer, Quantitative (0.19-0.50) mg/L Sodium 137 (136-145) mEq/L Potassium 3.8 (3.5-5.1) mEq/L Chloride 101 (98-107) mEq/L Carbon Dioxide 23 (21-32) mEq/L Anion Gap 16.8 H (5-15) BUN 32 H (7-18) mg/dL Creatinine 1.5 H (0.55-1.02) mg/dL Est Cr Clr Drug Dosing 27.36 mL/min Estimated GFR (MDRD) 33 (>60) mL/min BUN/Creatinine Ratio 21.3 H (14-18) Glucose 108 (83-115) mg/dL Calcium 8.4 L (8.5-10.1) mg/dL Phosphorus 3.4 (2.6-4.7) mg/dL Magnesium 1.6 L (1.8-2.4) mg/dl Total Bilirubin 0.2 (0.2-1.0) mg/dL AST 43 H (15-37) U/L ALT 47 (14-59) U/L Alkaline Phosphatase 51 (46-116) U/L C-Reactive Protein 3.7 H* (<1.0) mg/dL Total Protein 7.0 (6.4-8.2) g/dl Albumin 2.9 L (3.4-5.0) g/dl Globulin 4.1 gm/dL Albumin/Globulin Ratio 0.7 L (1-2) Procalcitonin 0.10 H (<0.10) ng/mL 06/19/20 Range/Units 07:34 WBC (3.98-10.04) K/mm3 RBC (3.98-5.22) M/mm3 Hgb (11.2-15.7) gm/dl Hct (34.1-44.9) % MCV (79.4-94.8) fl MCH (25.6-32.2) pg MCHC (32.2-35.5) g/dl RDW Std Deviation (36.4-46.3) fL Plt Count (182-369) K/mm3 MPV (9.4-12.3) fl Neut % (Auto) (34.0-71.1) % Lymph % (Auto) (19.3-51.7) % [place] % (Auto) (4.7-12.5) % Eos % (Auto) (0.7-5.8) Baso % (Auto) (0.1-1.2) % Neut # (Auto) (1.56-6.13) K/mm3 Lymph # (Auto) (1.18-3.74) K/mm3 [place] # (Auto) (0.24-0.36) K/mm3 Eos # (Auto) (0.04-0.36) K/mm3 Baso # (Auto) (0.01-0.08) K/mm3 D-Dimer, Quantitative 0.69 H (0.19-0.50) mg/L Sodium (136-145) mEq/L Potassium (3.5-5.1) mEq/L Chloride (98-107) mEq/L Carbon Dioxide (21-32) mEq/L Anion Gap (5-15) BUN (7-18) mg/dL Creatinine (0.55-1.02) mg/dL Est Cr Clr Drug Dosing mL/min Estimated GFR (MDRD) (>60) mL/min BUN/Creatinine Ratio (14-18) Glucose (83-115) mg/dL Calcium (8.5-10.1) mg/dL Phosphorus (2.6-4.7) mg/dL Magnesium (1.8-2.4) mg/dl Total Bilirubin (0.2-1.0) mg/dL AST (15-37) U/L ALT (14-59) U/L Alkaline Phosphatase (46-116) U/L C-Reactive Protein (<1.0) mg/dL Total Protein (6.4-8.2) g/dl Albumin (3.4-5.0) g/dl Globulin gm/dL Albumin/Globulin Ratio (1-2) Procalcitonin (<0.10) ng/mL Aj Results Last 24 Hours: Microbiology 06/17/20 23:24 Aerobic Blood Culture - Preliminary Blood NO GROWTH AFTER 1 DAY Anaerobic Blood Culture - Final Med Orders - Current: Current Medications Acetaminophen (Tylenol) 650 mg PO Q4H PRN PRN Reason: Pain (Mild 1-3)/fever Albuterol (Proventil Hfa) 0 gm INH Q4H PRN PRN Reason: Shortness of Breath Aspirin (Halfprin) 81 mg PO DAILY [facility] Last Admin: 06/19/20 08:35 Dose: 81 mg Documented by: Cyanocobalamin (Vitamin B12) 1,000 mcg PO DAILY [facility] Last Admin: 06/19/20 08:35 Dose: 1,000 mcg Documented by: Dexamethasone (Dexamethasone) 6 mg PO DAILY [facility] Stop: 06/27/20 09:01 Last Admin: 06/19/20 08:36 Dose: 6 mg Documented by: Enoxaparin Sodium (Lovenox) 40 mg SUBCUT DAILY [facility] Last Admin: 06/19/20 08:34 Dose: 40 mg Documented by: Estradiol (Estradiol) 1 mg PO DAILY [facility] Last Admin: 06/19/20 08:35 Dose: 1 mg Documented by: Gabapentin (Neurontin) 200 mg PO BEDTIME [facility] Last Admin: 06/18/20 20:53 Dose: 200 mg Documented by: Remdesivir 100 mg/ Sodium (Chloride) 100 mls @ 100 mls/hr IV Q24H [facility] Stop: 06/21/20 22:59 Last Admin: 06/18/20 22:34 Dose: 100 mls/hr Documented by: Levothyroxine Sodium (Levothyroxine) 75 mcg PO ACBREAKFAST [facility] Last Admin: 06/19/20 06:40 Dose: 75 mcg Documented by: Losartan Potassium (Cozaar) 50 mg PO DAILY [facility] Last Admin: 06/19/20 08:34 Dose: 50 mg Documented by: Mirtazapine (Remeron) 15 mg PO BEDTIME [facility] Last Admin: 06/18/20 20:53 Dose: 15 mg Documented by: Ondansetron HCl (Zofran) 4 mg IV Q4H PRN PRN Reason: Nausea/Vomiting Fluticasone/Umeclidin/Vilanter Inhaler 0 each INH DAILY [facility] Last Admin: 06/19/20 09:20 Dose: Not Given Documented by: Sodium Chloride (Saline Flush) 10 ml FLUSH ASDIRECTED PRN PRN Reason: Keep Vein Open Discontinued Medications Dexamethasone (Dexamethasone) 6 mg IVPUSH DAILY [facility] Stop: 06/27/20 09:01 Last Admin: 06/18/20 08:50 Dose: 6 mg Documented by: Furosemide (Lasix) 20 mg IVPUSH NOW ONE Stop: 06/18/20 09:35 Last Admin: 06/18/20 09:53 Dose: 20 mg Documented by: Remdesivir 200 mg/ Sodium (Chloride) 250 mls @ 250 mls/hr IV ONETIME ONE Stop: 06/17/20 22:03 Last Admin: 06/17/20 23:25 Dose: 250 mls/hr Documented by: Remdesivir 100 mg/ Sodium (Chloride) 100 mls @ 100 mls/hr IV DAILY [facility] Stop: 06/22/20 22:16 Sodium Chloride (Normal Saline) Confirm Administered Dose 250 mls @ as directed .ROUTE .STK-MED ONE Stop: 06/18/20 08:15 Last Admin: 06/18/20 08:56 Dose: 50 mls/hr Documented by: Sodium Chloride (Saline Flush) 10 ml FLUSH ASDIRECTED PRN PRN Reason: Keep Vein Open - Exam Quality Assessment: Supplemental Oxygen General: Alert, Oriented HEENT: Pupils Equal, Mucous Membr. Moist/[place] Neck: Supple Lungs: Normal Respiratory Effort, Decreased Breath Sounds Cardiovascular: Regular Rate, Regular Rhythm GI/Abdominal Exam: Normal Bowel Sounds, Non-Tender, No Distention Extremities: Normal Inspection, No Pedal Edema, Normal Capillary Refill Skin: Warm, Dry, Intact Sepsis Event Note - Evaluation Sepsis Screening Result: No Definite Risk - Focused Exam Vital Signs: Vital Signs Temp Pulse Resp BP BP Pulse Ox Pulse Ox 06/19/20 12:00 98.4 F 66 19 129/62 85 L 06/19/20 08:34 148/61 H 06/19/20 08:00 99.2 F 82 20 148/61 H 94 L 06/19/20 07:00 94 L 06/19/20 06:36 94 L 06/19/20 06:22 96 06/19/20 05:00 95 06/19/20 04:39 94 L 06/19/20 04:00 99 F 16 120/83 95 - Problem List & Annotations (1) Pneumonia due to COVID-19 virus SNOMED Code(s): 346563910861863855 Code(s): U07.1 - COVID-19; J12.89 - OTHER VIRAL PNEUMONIA Status: Acute Current Visit: Yes (2) CHF (congestive heart failure) SNOMED Code(s): 90900739 Code(s): I50.9 - HEART FAILURE, UNSPECIFIED Status: Acute Current Visit: Yes (3) CAD (coronary artery disease) SNOMED Code(s): 33050204 Code(s): I25.10 - ATHSCL HEART DISEASE OF [place] CORONARY ARTERY W/O ANG PCTRS Status: Acute Current Visit: Yes (4) COPD (chronic obstructive pulmonary disease) SNOMED Code(s): 11886478 Code(s): J44.9 - CHRONIC OBSTRUCTIVE PULMONARY DISEASE, UNSPECIFIED Status: Acute Current Visit: Yes (5) Hypothyroidism SNOMED Code(s): 06895574 Code(s): E03.9 - HYPOTHYROIDISM, UNSPECIFIED Status: Acute Current Visit: Yes (6) Memory loss due to medical condition SNOMED Code(s): 67098941 Code(s): R41.3 - OTHER AMNESIA Status: Acute Current Visit: Yes (7) Hyperlipemia SNOMED Code(s): 34136319 Code(s): E78.5 - HYPERLIPIDEMIA, UNSPECIFIED Status: Acute Current Visit: Yes (8) CVA, old, speech/language deficit SNOMED Code(s): 534401308 Code(s): I69.328 - OTH SPEECH/LANG DEFICITS FOLLOWING CEREBRAL INFARCTION Status: Acute Current Visit: Yes - Problem List Review Problem List Initiated/Reviewed/Updated: Yes - My Orders Last 24 Hours: My Active Orders 06/18/20 21:00 Gabapentin [Neurontin] 200 mg PO BEDTIME Mirtazapine [Remeron] 15 mg PO BEDTIME 06/18/20 22:00 Remdesivir (Eua) [Remdesivir (EUA)] 100 mg Sodium Chloride 0.9% [Normal Saline] 100 ml IV Q24H 06/19/20 06:00 Levothyroxine 75 mcg PO ACBREAKFAST 06/19/20 09:00 Aspirin [Halfprin] 81 mg PO DAILY Cyanocobalamin (Vitamin B12) [Vitamin B12] 1,000 mcg PO DAILY Losartan [Cozaar] 50 mg PO DAILY dexAMETHasone 6 mg PO DAILY estradioL 1 mg PO DAILY - Plan Plan:: 06/17/2020 79-year-old female with COPD transferred from [facility] as a direct admit with pneumonia secondary to COVID-19 * Patient requiring 2 L nasal cannula to keep her oxygen saturations in the 90s. * She is on 2 L nasal cannula when she sleeps at home due to COPD and CHF. * Received first dose of dexamethasone 6 mg and Lovenox 40 mg at [facility]. * Minimal respiratory distress * Initial WBC 4.11, INR 1.04, d-dimer 0.71, lactic acid 1.1, CRP 4.4, proBNP 431, albumin 3.0, ABG: pH 7.42, PCO2 of 35.5, PO2 of 71.0, HCO3 22.6, O2 saturation 93.4% on 2 L FiO2 CHF/coronary artery disease/hypertension * BNP normal on admission. * Blood pressure well controlled initially. * Bumex 2 mg twice daily, aspirin 81 mg daily, losartan 50 mg daily * No chest pain Acute versus acute on chronic renal insufficiency * BUN 14, creatinine 1.6, estimated GFR 31, sodium 135 * Unknown history of kidney disease Hypothyroidism Postmenopausal symptoms * Levothyroxine 75 mcg daily * Estradiol 1 mg daily 06/18/2020 Pneumonia secondary to COVID-19 * Significant improvement in oxygenation * Day 2 of dexamethasone, remdesivir, CHF, CAD, hypertension * Blood pressure well controlled Acute versus chronic renal insufficiency * Recheck labs in the morning 06/2020 Pneumonia secondary to COVID-19 * Continued improvement in oxygenation * Day 3 of dexamethasone, remdesivir, * Received convalescent plasma CHF, CAD, hypertension * Blood pressure well controlled * Awaiting echocardiogram results Acute versus chronic renal insufficiencyimproving * Recheck labs in the morning Plan * Continue COVID specific treatment of remdesivir, convalescent plasma, and dexamethasone. * Follow CBC, CMP, d-dimer, CRP * IV Lasix as needed * FiO2 to keep SPO2 greater than 87% and less than 95% * Continue home rate of FiO2 at 2 L nasal cannula while asleep VTE prophylaxis with Lovenox CODE STATUS: Full code Disposition: Admit to floor for treatment of pneumonia secondary to COVID-19
[2020-06-19] MEDS ORDERED: Magnesium Sulfate/Water 2 GM/50 ML BAG IV ONE (17:00)
[2020-06-19] MEDS: Gabapentin 100 MG Cap PO SCH (20:56)
[2020-06-19] MEDS: Mirtazapine 15 MG Tab PO SCH (20:57)
[2020-06-19] MEDS: REMDESIVIR (EUA) 100 MG in Sodium Chloride 0.9% 100 ML IV SCH (21:00)
[2020-06-20] MEDS: Levothyroxine 75 MCG Tab PO SCH (06:38)
[2020-06-20] MEDS: Losartan 25 MG Tab PO SCH (09:32)
[2020-06-20] MEDS: Aspirin 81 MG Tab.EC PO SCH (09:33)
[2020-06-20] MEDS: Cyanocobalamin (Vitamin B12) 1,000 MCG Tab PO SCH (09:33)
[2020-06-20] MEDS: Estradiol 0.5 MG Tab PO SCH (09:33)
[2020-06-20] MEDS: Dexamethasone 4 MG Tab PO SCH (09:34)
[2020-06-20] MEDS: Enoxaparin 40 MG/0.4 ML Syringe SUBCUT SCH (09:34)
[2020-06-20] MEDS: FLUTICASONE INH SCH (09:35)
[2020-06-20] MEDS: VILANTER INH SCH (09:35)
[2020-06-20] MEDS: UMECLIDIN INH SCH (09:35)
--- NOTE | 2020-06-20 14:42 | PCM.PN ---
- General Info Date of Service: 06/20/20 Admission Dx/Problem (Free Text): Admission Diagnosis/Problem Admission Diagnosis/Problem Viral pneumonia Subjective Update: Patient states that she is feeling better. Her oxygenation continues to improve. Appetite is good. Functional Status: Reports: Pain Controlled - Review of Systems General: Reports: No Symptoms HEENT: Reports: No Symptoms Pulmonary: Reports: Cough Cardiovascular: Reports: No Symptoms Gastrointestinal: Reports: No Symptoms Musculoskeletal: Reports: No Symptoms - Patient Data Vitals - Most Recent: Last Vital Signs Temp 98 F 06/20/20 08:00 Pulse 65 06/19/20 16:00 Resp 18 06/20/20 08:00 BP 156/65 H 06/20/20 09:32 Pulse Ox 93 L 06/20/20 08:00 Weight - Most Recent: 84.822 kg I&O - Last 24 Hours: Intake & Output 06/19/20 06/20/20 06/20/20 22:59 06:59 14:59 Intake Total 500 240 250 Output Total 425 700 Balance 75 -460 250 Lab Results Last 24 Hours: Laboratory Results - last 24 hr 06/20/20 06/20/20 06/20/20 Range/Units 05:53 05:53 05:53 WBC 6.83 (3.98-10.04) K/mm3 RBC 3.87 L (3.98-5.22) M/mm3 Hgb 11.8 (11.2-15.7) gm/dl Hct 37.4 (34.1-44.9) % MCV 96.6 H (79.4-94.8) fl MCH 30.5 (25.6-32.2) pg MCHC 31.6 L (32.2-35.5) g/dl RDW Std Deviation 46.1 (36.4-46.3) fL Plt Count 200 (182-369) K/mm3 MPV 9.0 L (9.4-12.3) fl Neut % (Auto) 71.3 H (34.0-71.1) % Lymph % (Auto) 17.7 L (19.3-51.7) % [place] % (Auto) 10.8 (4.7-12.5) % Eos % (Auto) 0.1 L (0.7-5.8) Baso % (Auto) 0.0 L (0.1-1.2) % Neut # (Auto) 4.86 (1.56-6.13) K/mm3 Lymph # (Auto) 1.21 (1.18-3.74) K/mm3 [place] # (Auto) 0.74 H (0.24-0.36) K/mm3 Eos # (Auto) 0.01 L (0.04-0.36) K/mm3 Baso # (Auto) 0.00 L (0.01-0.08) K/mm3 Manual Slide Review Not Reportable D-Dimer, Quantitative 0.45 (0.19-0.50) mg/L Sodium 138 (136-145) mEq/L Potassium 3.9 (3.5-5.1) mEq/L Chloride 102 (98-107) mEq/L Carbon Dioxide 25 (21-32) mEq/L Anion Gap 14.9 (5-15) BUN 28 H (7-18) mg/dL Creatinine 1.1 H (0.55-1.02) mg/dL Est Cr Clr Drug Dosing 37.32 mL/min Estimated GFR (MDRD) 48 (>60) mL/min BUN/Creatinine Ratio 25.5 H (14-18) Glucose 122 H (83-115) mg/dL Calcium 8.5 (8.5-10.1) mg/dL Phosphorus 4.0 (2.6-4.7) mg/dL Magnesium 2.1 (1.8-2.4) mg/dl Total Bilirubin 0.3 (0.2-1.0) mg/dL AST 32 (15-37) U/L ALT 42 (14-59) U/L Alkaline Phosphatase 48 (46-116) U/L C-Reactive Protein 3.2 H* (<1.0) mg/dL Total Protein 6.7 (6.4-8.2) g/dl Albumin 2.7 L (3.4-5.0) g/dl Globulin 4.0 gm/dL Albumin/Globulin Ratio 0.7 L (1-2) Aj Results Last 24 Hours: Microbiology 06/17/20 23:24 Aerobic Blood Culture - Preliminary Blood NO GROWTH AFTER 2 DAYS Anaerobic Blood Culture - Final Med Orders - Current: Current Medications Acetaminophen (Tylenol) 650 mg PO Q4H PRN PRN Reason: Pain (Mild 1-3)/fever Albuterol (Proventil Hfa) 0 gm INH Q4H PRN PRN Reason: Shortness of Breath Aspirin (Halfprin) 81 mg PO DAILY [facility] Last Admin: 06/20/20 09:33 Dose: 81 mg Documented by: Cyanocobalamin (Vitamin B12) 1,000 mcg PO DAILY [facility] Last Admin: 06/20/20 09:33 Dose: 1,000 mcg Documented by: Dexamethasone (Dexamethasone) 6 mg PO DAILY [facility] Stop: 06/27/20 09:01 Last Admin: 06/20/20 09:34 Dose: 6 mg Documented by: Enoxaparin Sodium (Lovenox) 40 mg SUBCUT DAILY [facility] Last Admin: 06/20/20 09:34 Dose: 40 mg Documented by: Estradiol (Estradiol) 1 mg PO DAILY [facility] Last Admin: 06/20/20 09:33 Dose: 1 mg Documented by: Gabapentin (Neurontin) 200 mg PO BEDTIME [facility] Last Admin: 06/19/20 20:56 Dose: 200 mg Documented by: Remdesivir 100 mg/ Sodium (Chloride) 100 mls @ 100 mls/hr IV Q24H [facility] Stop: 06/21/20 22:59 Last Admin: 06/19/20 21:00 Dose: 100 mls/hr Documented by: Levothyroxine Sodium (Levothyroxine) 75 mcg PO ACBREAKFAST [facility] Last Admin: 06/20/20 06:38 Dose: 75 mcg Documented by: Losartan Potassium (Cozaar) 50 mg PO DAILY [facility] Last Admin: 06/20/20 09:32 Dose: 50 mg Documented by: Mirtazapine (Remeron) 15 mg PO BEDTIME [facility] Last Admin: 06/19/20 20:57 Dose: 15 mg Documented by: Ondansetron HCl (Zofran) 4 mg IV Q4H PRN PRN Reason: Nausea/Vomiting Fluticasone/Umeclidin/Vilanter Inhaler 0 each INH DAILY [facility] Last Admin: 06/20/20 09:35 Dose: 1 each Documented by: Sodium Chloride (Saline Flush) 10 ml FLUSH ASDIRECTED PRN PRN Reason: Keep Vein Open Discontinued Medications Dexamethasone (Dexamethasone) 6 mg IVPUSH DAILY [facility] Stop: 06/27/20 09:01 Last Admin: 06/18/20 08:50 Dose: 6 mg Documented by: Furosemide (Lasix) 20 mg IVPUSH NOW ONE Stop: 06/18/20 09:35 Last Admin: 06/18/20 09:53 Dose: 20 mg Documented by: Remdesivir 200 mg/ Sodium (Chloride) 250 mls @ 250 mls/hr IV ONETIME ONE Stop: 06/17/20 22:03 Last Admin: 06/17/20 23:25 Dose: 250 mls/hr Documented by: Remdesivir 100 mg/ Sodium (Chloride) 100 mls @ 100 mls/hr IV DAILY [facility] Stop: 06/22/20 22:16 Sodium Chloride (Normal Saline) Confirm Administered Dose 250 mls @ as directed .ROUTE .STK-MED ONE Stop: 06/18/20 08:15 Last Admin: 06/18/20 08:56 Dose: 50 mls/hr Documented by: Magnesium Sulfate (Magnesium Sulfate In Water Premix) 2 gm in 50 mls @ 25 mls/hr IV ONETIME ONE Stop: 06/19/20 18:59 Last Admin: 06/19/20 17:04 Dose: 25 mls/hr Documented by: Sodium Chloride (Saline Flush) 10 ml FLUSH ASDIRECTED PRN PRN Reason: Keep Vein Open - Exam Quality Assessment: Supplemental Oxygen General: Alert, Oriented HEENT: Pupils Equal, Mucous Membr. Moist/[place] Neck: Supple Lungs: Normal Respiratory Effort, Rales ([place]as[place]) Cardiovascular: Regular Rate, Regular Rhythm GI/Abdominal Exam: Normal Bowel Sounds, Soft, No Distention Extremities: Normal Inspection, No Pedal Edema, Normal Capillary Refill Skin: Warm, Dry, Intact Psy/Mental Status: Alert, Normal Affect, Normal Mood Sepsis Event Note - Evaluation Sepsis Screening Result: No Definite Risk - Focused Exam Vital Signs: Vital Signs Temp Resp BP BP BP Pulse Ox Pulse Ox 06/20/20 09:32 156/65 H 06/20/20 08:00 98 F 18 156/65 H 93 L 06/20/20 05:23 96 06/20/20 04:00 97.6 F 18 161/65 H 94 L - Problem List & Annotations (1) Pneumonia due to COVID-19 virus SNOMED Code(s): 666464789610182381 Code(s): U07.1 - COVID-19; J12.89 - OTHER VIRAL PNEUMONIA Status: Acute Current Visit: Yes (2) CHF (congestive heart failure) SNOMED Code(s): 96710138 Code(s): I50.9 - HEART FAILURE, UNSPECIFIED Status: Acute Current Visit: Yes (3) CAD (coronary artery disease) SNOMED Code(s): 62513485 Code(s): I25.10 - ATHSCL HEART DISEASE OF [place] CORONARY ARTERY W/O ANG PCTRS Status: Acute Current Visit: Yes (4) COPD (chronic obstructive pulmonary disease) SNOMED Code(s): 80080205 Code(s): J44.9 - CHRONIC OBSTRUCTIVE PULMONARY DISEASE, UNSPECIFIED Status: Acute Current Visit: Yes (5) Hypothyroidism SNOMED Code(s): 44074429 Code(s): E03.9 - HYPOTHYROIDISM, UNSPECIFIED Status: Acute Current Visit: Yes (6) Memory loss due to medical condition SNOMED Code(s): 48920713 Code(s): R41.3 - OTHER AMNESIA Status: Acute Current Visit: Yes (7) Hyperlipemia SNOMED Code(s): 67449767 Code(s): E78.5 - HYPERLIPIDEMIA, UNSPECIFIED Status: Acute Current Visit: Yes (8) CVA, old, speech/language deficit SNOMED Code(s): 879862861 Code(s): I69.328 - OTH SPEECH/LANG DEFICITS FOLLOWING CEREBRAL INFARCTION Status: Acute Current Visit: Yes - Problem List Review Problem List Initiated/Reviewed/Updated: Yes - My Orders Last 24 Hours: My Active Orders 06/21/20 05:11 C-REACTIVE PROTEIN [CHEM] AM CBC WITH AUTO DIFF [HEME] AM CMP [COMPREHENSIVE METABOLIC PN,CMP] [CHEM] AM DD [D-DIMER QUANTITATIVE] [COAG] AM MAGNESIUM [CHEM] AM PHOSPHORUS [CHEM] AM - Plan Plan:: 06/17/2020 79-year-old female with COPD transferred from [facility] as a direct admit with pneumonia secondary to COVID-19 * Patient requiring 2 L nasal cannula to keep her oxygen saturations in the 90s. * She is on 2 L nasal cannula when she sleeps at home due to COPD and CHF. * Received first dose of dexamethasone 6 mg and Lovenox 40 mg at [facility]. * Minimal respiratory distress * Initial WBC 4.11, INR 1.04, d-dimer 0.71, lactic acid 1.1, CRP 4.4, proBNP 431, albumin 3.0, ABG: pH 7.42, PCO2 of 35.5, PO2 of 71.0, HCO3 22.6, O2 sat uration 93.4% on 2 L FiO2 CHF/coronary artery disease/hypertension * BNP normal on admission. * Blood pressure well controlled initially. * Bumex 2 mg twice daily, aspirin 81 mg daily, losartan 50 mg daily * No chest pain Acute versus acute on chronic renal insufficiency * BUN 14, creatinine 1.6, estimated GFR 31, sodium 135 * Unknown history of kidney disease Hypothyroidism Postmenopausal symptoms * Levothyroxine 75 mcg daily * Estradiol 1 mg daily 06/18/2020 Pneumonia secondary to COVID-19 * Significant improvement in oxygenation * Day 2 of dexamethasone, remdesivir, CHF, CAD, hypertension * Blood pressure well controlled Acute versus chronic renal insufficiency * Recheck labs in the morning 06/19/2020 Pneumonia secondary to COVID-19 * Continued improvement in oxygenation * Day 3 of dexamethasone, remdesivir, * Received convalescent plasma CHF, CAD, hypertension * Blood pressure well controlled * Awaiting echocardiogram results Acute versus chronic renal insufficiencyimproving * Recheck labs in the morning 06/20/2020 Pneumonia secondary to COVID-19 * Continued improvement in oxygenation * Day 4 of dexamethasone and remdesivir * Received convalescent plasma * CRP down to 3.2, d-dimer normal at 0.45, WBC 6.83 CHF, CAD, hypertension * Blood pressure well controlled * Awaiting echocardiogram results Acute versus chronic renal insufficiencyimproving * GFR has improved. GFR 48, creatinine 1.1. Plan * Dexamethasone day * Remdesivir day 4 of * Follow CBC, CMP, d-dimer, CRP * IV Lasix as needed * FiO2 to keep SPO2 greater than 87% and less than 95% * Continue home rate of FiO2 at 2 L nasal cannula while asleep * She should be ready for discharge on Tuesday. VTE prophylaxis with Lovenox CODE STATUS: Full code Disposition: Admit to floor for treatment of pneumonia secondary to COVID-19
[2020-06-20] MEDS: Mirtazapine 15 MG Tab PO SCH (21:32)
[2020-06-20] MEDS: Gabapentin 100 MG Cap PO SCH (21:32)
[2020-06-20] MEDS: REMDESIVIR (EUA) 100 MG in Sodium Chloride 0.9% 100 ML IV SCH (21:42)
--- NOTE | 2020-06-21 08:38 | PCM.PN ---
- General Info Date of Service: 06/21/20 Admission Dx/Problem (Free Text): Admission Diagnosis/Problem Admission Diagnosis/Problem Viral pneumonia Subjective Update: The patient is a 79-year-old lady admitted to acute hospitalization on June 17, 2020. The patient had difficulty breathing. She was found to be positive for COVID-19. Patient also had worsening of her congestive heart failure. The patient says that her leg swelling has improved. Functional Status: Reports: Pain Controlled, Tolerating Diet - Review of Systems General: Reports: Weakness, Fatigue HEENT: Reports: No Symptoms Pulmonary: Reports: Shortness of Breath Cardiovascular: Reports: Dyspnea on Exertion, Edema Gastrointestinal: Reports: No Symptoms Genitourinary: Reports: No Symptoms Musculoskeletal: Reports: No Symptoms Skin: Reports: No Symptoms Neurological: Reports: No Symptoms Psychiatric: Reports: No Symptoms - Patient Data Vitals - Most Recent: Last Vital Signs Temp 36.4 C 06/21/20 04:00 Pulse 66 06/21/20 04:00 Resp 20 06/21/20 04:00 BP 169/76 H 06/21/20 04:00 Pulse Ox 94 L 06/21/20 06:09 Weight - Most Recent: 83.007 kg I&O - Last 24 Hours: Intake & Output 06/20/20 06/21/20 06/21/20 22:59 06:59 14:59 Intake Total 1110 445 Output Total 700 800 Balance 410 -355 Lab Results Last 24 Hours: Laboratory Results - last 24 hr 06/21/20 06/21/20 06/21/20 Range/Units 05:48 05:48 05:48 WBC 5.76 (3.98-10.04) K/mm3 RBC 3.88 L (3.98-5.22) M/mm3 Hgb 11.9 (11.2-15.7) gm/dl Hct 37.7 (34.1-44.9) % MCV 97.2 H (79.4-94.8) fl MCH 30.7 (25.6-32.2) pg MCHC 31.6 L (32.2-35.5) g/dl RDW Std Deviation 46.1 (36.4-46.3) fL Plt Count 213 (182-369) K/mm3 MPV 9.5 (9.4-12.3) fl Neut % (Auto) 68.0 (34.0-71.1) % Lymph % (Auto) 22.4 (19.3-51.7) % [place] % (Auto) 9.4 (4.7-12.5) % Eos % (Auto) 0 L (0.7-5.8) Baso % (Auto) 0.0 L (0.1-1.2) % Neut # (Auto) 3.92 (1.56-6.13) K/mm3 Lymph # (Auto) 1.29 (1.18-3.74) K/mm3 [place] # (Auto) 0.54 H (0.24-0.36) K/mm3 Eos # (Auto) 0.00 L (0.04-0.36) K/mm3 Baso # (Auto) 0.00 L (0.01-0.08) K/mm3 D-Dimer, Quantitative 0.43 (0.19-0.50) mg/L Sodium 140 (136-145) mEq/L Potassium 3.9 (3.5-5.1) mEq/L Chloride 104 (98-107) mEq/L Carbon Dioxide 25 (21-32) mEq/L Anion Gap 14.9 (5-15) BUN 27 H (7-18) mg/dL Creatinine 1.0 (0.55-1.02) mg/dL Est Cr Clr Drug Dosing 41.05 mL/min Estimated GFR (MDRD) 53 (>60) mL/min BUN/Creatinine Ratio 27.0 H (14-18) Glucose 124 H (83-115) mg/dL Calcium 8.5 (8.5-10.1) mg/dL Phosphorus 3.9 (2.6-4.7) mg/dL Magnesium 2.1 (1.8-2.4) mg/dl Total Bilirubin 0.2 (0.2-1.0) mg/dL AST 22 (15-37) U/L ALT 40 (14-59) U/L Alkaline Phosphatase 47 (46-116) U/L C-Reactive Protein 2.3 H* (<1.0) mg/dL Total Protein 6.7 (6.4-8.2) g/dl Albumin 2.6 L (3.4-5.0) g/dl Globulin 4.1 gm/dL Albumin/Globulin Ratio 0.6 L (1-2) Aj Results Last 24 Hours: Microbiology 06/17/20 23:24 Aerobic Blood Culture - Preliminary Blood NO GROWTH AFTER 3 DAYS Anaerobic Blood Culture - Final Med Orders - Current: Current Medications Acetaminophen (Tylenol) 650 mg PO Q4H PRN PRN Reason: Pain (Mild 1-3)/fever Albuterol (Proventil Hfa) 0 gm INH Q4H PRN PRN Reason: Shortness of Breath Aspirin (Halfprin) 81 mg PO DAILY [facility] Last Admin: 06/20/20 09:33 Dose: 81 mg Documented by: Bumetanide (Bumex) 2 mg PO BIDDIURETIC [facility] Cyanocobalamin (Vitamin B12) 1,000 mcg PO DAILY [facility] Last Admin: 06/20/20 09:33 Dose: 1,000 mcg Documented by: Dexamethasone (Dexamethasone) 6 mg PO DAILY [facility] Stop: 06/27/20 09:01 Last Admin: 06/20/20 09:34 Dose: 6 mg Documented by: Enoxaparin Sodium (Lovenox) 40 mg SUBCUT DAILY [facility] Last Admin: 06/20/20 09:34 Dose: 40 mg Documented by: Estradiol (Estradiol) 1 mg PO DAILY [facility] Last Admin: 06/20/20 09:33 Dose: 1 mg Documented by: Gabapentin (Neurontin) 200 mg PO BEDTIME [facility] Last Admin: 06/20/20 21:32 Dose: 200 mg Documented by: Remdesivir 100 mg/ Sodium (Chloride) 100 mls @ 100 mls/hr IV Q24H [facility] Stop: 06/21/20 22:59 Last Admin: 06/20/20 21:42 Dose: 100 mls/hr Documented by: Levothyroxine Sodium (Levothyroxine) 75 mcg PO ACBREAKFAST [facility] Last Admin: 06/20/20 06:38 Dose: 75 mcg Documented by: Losartan Potassium (Cozaar) 50 mg PO DAILY [facility] Last Admin: 06/20/20 09:32 Dose: 50 mg Documented by: Mirtazapine (Remeron) 15 mg PO BEDTIME [facility] Last Admin: 06/20/20 21:32 Dose: 15 mg Documented by: Ondansetron HCl (Zofran) 4 mg IV Q4H PRN PRN Reason: Nausea/Vomiting Fluticasone/Umeclidin/Vilanter Inhaler 0 each INH DAILY [facility] Last Admin: 06/20/20 09:35 Dose: 1 each Documented by: Polyethylene Glycol (Miralax) 17 gm PO Q48H [facility] Sodium Chloride (Saline Flush) 10 ml FLUSH ASDIRECTED PRN PRN Reason: Keep Vein Open Discontinued Medications Dexamethasone (Dexamethasone) 6 mg IVPUSH DAILY [facility] Stop: 06/27/20 09:01 Last Admin: 06/18/20 08:50 Dose: 6 mg Documented by: Furosemide (Lasix) 20 mg IVPUSH NOW ONE Stop: 06/18/20 09:35 Last Admin: 06/18/20 09:53 Dose: 20 mg Documented by: Remdesivir 200 mg/ Sodium (Chloride) 250 mls @ 250 mls/hr IV ONETIME ONE Stop: 06/17/20 22:03 Last Admin: 06/17/20 23:25 Dose: 250 mls/hr Documented by: Remdesivir 100 mg/ Sodium (Chloride) 100 mls @ 100 mls/hr IV DAILY [facility] Stop: 06/22/20 22:16 Sodium Chloride (Normal Saline) Confirm Administered Dose 250 mls @ as directed .ROUTE .STK-MED ONE Stop: 06/18/20 08:15 Last Admin: 06/18/20 08:56 Dose: 50 mls/hr Documented by: Magnesium Sulfate (Magnesium Sulfate In Water Premix) 2 gm in 50 mls @ 25 mls/hr IV ONETIME ONE Stop: 06/19/20 18:59 Last Admin: 06/19/20 17:04 Dose: 25 mls/hr Documented by: Sodium Chloride (Saline Flush) 10 ml FLUSH ASDIRECTED PRN PRN Reason: Keep Vein Open - Exam Quality Assessment: Supplemental Oxygen General: Alert, Oriented, Cooperative HEENT: Pupils Equal, Pupils Reactive Neck: Supple Lungs: Clear to Auscultation, Normal Respiratory Effort Cardiovascular: Regular Rate, Regular Rhythm GI/Abdominal Exam: Normal Bowel Sounds, No Distention (Female) Exam: Deferred Back Exam: No: Normal Inspection (Kyphosis) Extremities: Normal Inspection, No Pedal Edema Skin: Warm, Dry, Intact Neurological: No New Focal Deficit Psy/Mental Status: Alert, Normal Affect Sepsis Event Note - Evaluation Sepsis Screening Result: No Definite Risk - Focused Exam Vital Signs: Vital Signs Temp Pulse Resp BP Pulse Ox Pulse Ox 06/21/20 06:09 94 L 06/21/20 04:00 36.4 C 66 20 169/76 H 92 L 06/21/20 00:45 36.4 C 50 L 18 161/97 H 93 L 06/20/20 20:52 94 L - Problem List & Annotations (1) Pneumonia due to COVID-19 virus SNOMED Code(s): 382328474112758062 Code(s): U07.1 - COVID-19; J12.89 - OTHER VIRAL PNEUMONIA Status: Acute Priority: High Current Visit: Yes (2) CHF (congestive heart failure) SNOMED Code(s): 31172655 Code(s): I50.9 - HEART FAILURE, UNSPECIFIED Status: Acute Priority: High Current Visit: Yes Qualifiers: Heart failure type: combined systolic and diastolic Heart failure chronicity: chronic Qualified Code(s): I50.42 - Chronic combined systolic (congestive) and diastolic (congestive) heart failure - Problem List Review Problem List Initiated/Reviewed/Updated: Yes - Plan Plan:: 06/17/2020 79-year-old female with COPD transferred from [facility] as a direct admit with pneumonia secondary to COVID-19 * Patient requiring 2 L nasal cannula to keep her oxygen saturations in the 90s. * She is on 2 L nasal cannula when she sleeps at home due to COPD and CHF. * Received first dose of dexamethasone 6 mg and Lovenox 40 mg at [facility]. * Minimal respiratory distress * Initial WBC 4.11, INR 1.04, d-dimer 0.71, lactic acid 1.1, CRP 4.4, proBNP 431, albumin 3.0, ABG: pH 7.42, PCO2 of 35.5, PO2 of 71.0, HCO3 22.6, O2 saturation 93.4% on 2 L FiO2 CHF/coronary artery disease/hypertension * BNP normal on admission. * Blood pressure well controlled initially. * Bumex 2 mg twice daily, aspirin 81 mg daily, losartan 50 mg daily * No chest pain Acute versus acute on chronic renal insufficiency * BUN 14, creatinine 1.6, estimated GFR 31, sodium 135 * Unknown history of kidney disease Hypothyroidism Postmenopausal symptoms * Levothyroxine 75 mcg daily * Estradiol 1 mg daily 06/18/2020 Pneumonia secondary to COVID-19 * Significant improvement in oxygenation * Day 2 of dexamethasone, remdesivir, CHF, CAD, hypertension * Blood pressure well controlled Acute versus chronic renal insufficiency * Recheck labs in the morning 06/19/2020 Pneumonia secondary to COVID-19 * Continued improvement in oxygenation * Day 3 of dexamethasone, remdesivir, * Received convalescent plasma CHF, CAD, hypertension * Blood pressure well controlled * Awaiting echocardiogram results Acute versus chronic renal insufficiencyimproving * Recheck labs in the morning 06/20/2020 Pneumonia secondary to COVID-19 * Continued improvement in oxygenation * Day 4 of dexamethasone and remdesivir * Received convalescent plasma * CRP down to 3.2, d-dimer normal at 0.45, WBC 6.83 CHF, CAD, hypertension * Blood pressure well controlled * Awaiting echocardiogram results Acute versus chronic renal insufficiencyimproving * GFR has improved. GFR 48, creatinine 1.1. Plan * Dexamethasone day 4 * Remdesivir day 4 of * Follow CBC, CMP, d-dimer, CRP * IV Lasix as needed * FiO2 to keep SPO2 greater than 87% and less than 95% * Continue home rate of FiO2 at 2 L nasal cannula while asleep * She should be ready for discharge on Tuesday. VTE prophylaxis with Lovenox CODE STATUS: Full code Disposition: Admit to floor for treatment of pneumonia secondary to COVID-19 06/21/2020 The patient has exhibited some improvement in her oxygenation and her pulse oximetry will continue to be monitored and adjusted as necessary. Repeat laboratories have been ordered. She will be continued on dexamethasone and remdesivir. The patient will be continued on appropriate diet. G OT will be ordered. Repeat chest x-ray will be necessary prior to going home. This is been ordered.
[2020-06-21] MEDS ORDERED: Polyethylene Glycol 3350 Powder 17 GM Packet PO SCH (09:00)
[2020-06-21] MEDS: Enoxaparin 40 MG/0.4 ML Syringe SUBCUT SCH (09:22)
[2020-06-21] MEDS: Dexamethasone 4 MG Tab PO SCH (09:22)
[2020-06-21] MEDS: Losartan 25 MG Tab PO SCH (09:23)
[2020-06-21] MEDS: Estradiol 0.5 MG Tab PO SCH (09:26)
[2020-06-21] MEDS: Aspirin 81 MG Tab.EC PO SCH (09:26)
[2020-06-21] MEDS: Bumetanide 1 MG Tab PO SCH ×2 (09:27→15:03)
[2020-06-21] MEDS: Cyanocobalamin (Vitamin B12) 1,000 MCG Tab PO SCH (09:29)
[2020-06-21] MEDS: FLUTICASONE INH SCH (09:30)
[2020-06-21] MEDS: VILANTER INH SCH (09:30)
[2020-06-21] MEDS: Levothyroxine 75 MCG Tab PO SCH (09:30)
[2020-06-21] MEDS: UMECLIDIN INH SCH (09:30)
[2020-06-21] MEDS: Gabapentin 100 MG Cap PO SCH (21:59)
[2020-06-21] MEDS: Mirtazapine 15 MG Tab PO SCH (21:59)
[2020-06-21] MEDS: REMDESIVIR (EUA) 100 MG in Sodium Chloride 0.9% 100 ML IV SCH (22:00)
[2020-06-22] MEDS: Bumetanide 1 MG Tab PO SCH ×2 (06:27→14:34)
[2020-06-22] MEDS: Levothyroxine 75 MCG Tab PO SCH (06:27)
[2020-06-22] MEDS: Dexamethasone 4 MG Tab PO SCH (08:14)
[2020-06-22] MEDS: Losartan 25 MG Tab PO SCH (08:15)
[2020-06-22] MEDS: Cyanocobalamin (Vitamin B12) 1,000 MCG Tab PO SCH (08:15)
[2020-06-22] MEDS: Aspirin 81 MG Tab.EC PO SCH (08:15)
[2020-06-22] MEDS: Enoxaparin 40 MG/0.4 ML Syringe SUBCUT SCH (08:16)
[2020-06-22] MEDS: Estradiol 0.5 MG Tab PO SCH (08:16)
[2020-06-22] MEDS: FLUTICASONE INH SCH (08:17)
[2020-06-22] MEDS: VILANTER INH SCH (08:17)
[2020-06-22] MEDS: UMECLIDIN INH SCH (08:17)
--- NOTE | 2020-06-22 12:35 | PCM.PN ---
- General Info Date of Service: 06/22/20 Admission Dx/Problem (Free Text): Admission Diagnosis/Problem Admission Diagnosis/Problem Viral pneumonia Subjective Update: The patient is a 79-year-old lady admitted to acute hospitalization on June 17, 2020. The patient had difficulty breathing. She was found to be positive for COVID-19. Patient also had worsening of her congestive heart failure. The patient says that she is doing better today. She has been tolerating her diet. The patient also was refusing labs this morning. Patient does not feel like she can go home yet. Functional Status: Reports: Pain Controlled - Review of Systems General: Reports: Weakness, Fatigue HEENT: Reports: No Symptoms Pulmonary: Reports: Shortness of Breath Cardiovascular: Reports: No Symptoms Gastrointestinal: Reports: No Symptoms Genitourinary: Reports: No Symptoms Musculoskeletal: Reports: No Symptoms Skin: Reports: No Symptoms Neurological: Reports: No Symptoms Psychiatric: Reports: No Symptoms - Patient Data Vitals - Most Recent: Last Vital Signs Temp 36.7 C 06/22/20 08:00 Pulse 71 06/22/20 08:00 Resp 16 06/22/20 08:00 BP 143/74 H 06/22/20 08:15 Pulse Ox 93 L 06/22/20 08:47 Weight - Most Recent: 75.523 kg I&O - Last 24 Hours: Intake & Output 06/21/20 06/22/20 06/22/20 22:59 06:59 14:59 Intake Total 600 250 120 Output Total 1850 700 Balance -1250 -450 120 Aj Results Last 24 Hours: Microbiology 06/17/20 23:24 Aerobic Blood Culture - Preliminary Blood NO GROWTH AFTER 4 DAYS Anaerobic Blood Culture - Final Med Orders - Current: Current Medications Acetaminophen (Tylenol) 650 mg PO Q4H PRN PRN Reason: Pain (Mild 1-3)/fever Albuterol (Proventil Hfa) 0 gm INH Q4H PRN PRN Reason: Shortness of Breath Aspirin (Halfprin) 81 mg PO DAILY [facility] Last Admin: 06/22/20 08:15 Dose: 81 mg Documented by: Bumetanide (Bumex) 2 mg PO BIDDIURETIC [facility] Last Admin: 06/22/20 06:27 Dose: 2 mg Documented by: Cyanocobalamin (Vitamin B12) 1,000 mcg PO DAILY [facility] Last Admin: 06/22/20 08:15 Dose: 1,000 mcg Documented by: Dexamethasone (Dexamethasone) 6 mg PO DAILY [facility] Stop: 06/27/20 09:01 Last Admin: 06/22/20 08:14 Dose: 6 mg Documented by: Enoxaparin Sodium (Lovenox) 40 mg SUBCUT DAILY [facility] Last Admin: 06/22/20 08:16 Dose: 40 mg Documented by: Estradiol (Estradiol) 1 mg PO DAILY [facility] Last Admin: 06/22/20 08:16 Dose: 1 mg Documented by: Gabapentin (Neurontin) 200 mg PO BEDTIME [facility] Last Admin: 06/21/20 21:59 Dose: 200 mg Documented by: Levothyroxine Sodium (Levothyroxine) 75 mcg PO ACBREAKFAST [facility] Last Admin: 06/22/20 06:27 Dose: 75 mcg Documented by: Losartan Potassium (Cozaar) 50 mg PO DAILY [facility] Last Admin: 06/22/20 08:15 Dose: 50 mg Documented by: Mirtazapine (Remeron) 15 mg PO BEDTIME [facility] Last Admin: 06/21/20 21:59 Dose: 15 mg Documented by: Ondansetron HCl (Zofran) 4 mg IV Q4H PRN PRN Reason: Nausea/Vomiting Fluticasone/Umeclidin/Vilanter Inhaler 0 each INH DAILY [facility] Last Admin: 06/22/20 08:17 Dose: 1 each Documented by: Polyethylene Glycol (Miralax) 17 gm PO Q48H [facility] Last Admin: 06/21/20 09:30 Dose: 17 gm Documented by: Sodium Chloride (Saline Flush) 10 ml FLUSH ASDIRECTED PRN PRN Reason: Keep Vein Open Discontinued Medications Dexamethasone (Dexamethasone) 6 mg IVPUSH DAILY [facility] Stop: 06/27/20 09:01 Last Admin: 06/18/20 08:50 Dose: 6 mg Documented by: Furosemide (Lasix) 20 mg IVPUSH NOW ONE Stop: 06/18/20 09:35 Last Admin: 06/18/20 09:53 Dose: 20 mg Documented by: Remdesivir 200 mg/ Sodium (Chloride) 250 mls @ 250 mls/hr IV ONETIME ONE Stop: 06/17/20 22:03 Last Admin: 06/17/20 23:25 Dose: 250 mls/hr Documented by: Remdesivir 100 mg/ Sodium (Chloride) 100 mls @ 100 mls/hr IV DAILY [facility] Stop: 06/22/20 22:16 Remdesivir 100 mg/ Sodium (Chloride) 100 mls @ 100 mls/hr IV Q24H [facility] Stop: 06/21/20 22:59 Last Admin: 06/21/20 22:00 Dose: 100 mls/hr Documented by: Sodium Chloride (Normal Saline) Confirm Administered Dose 250 mls @ as directed .ROUTE .STK-MED ONE Stop: 06/18/20 08:15 Last Admin: 06/18/20 08:56 Dose: 50 mls/hr Documented by: Magnesium Sulfate (Magnesium Sulfate In Water Premix) 2 gm in 50 mls @ 25 mls/hr IV ONETIME ONE Stop: 06/19/20 18:59 Last Admin: 06/19/20 17:04 Dose: 25 mls/hr Documented by: Sodium Chloride (Saline Flush) 10 ml FLUSH ASDIRECTED PRN PRN Reason: Keep Vein Open - Exam Quality Assessment: Supplemental Oxygen General: Alert, Oriented, Cooperative HEENT: Pupils Equal, Pupils Reactive, EOMI Neck: Supple, Trachea Midline Lungs: Clear to Auscultation, Normal Respiratory Effort Cardiovascular: Regular Rate, Irregular Rhythm GI/Abdominal Exam: Normal Bowel Sounds, Soft, Non-Tender, No Distention (Female) Exam: Deferred Back Exam: Normal Inspection, Full Range of Motion Extremities: Normal Inspection, No Pedal Edema Skin: Warm, Dry, Intact Neurological: No New Focal Deficit Psy/Mental Status: Alert, Normal Affect Sepsis Event Note - Evaluation Sepsis Screening Result: No Definite Risk - Focused Exam Vital Signs: Vital Signs Temp Pulse Resp BP BP Pulse Ox Pulse Ox 06/22/20 08:47 93 L 06/22/20 08:15 143/74 H 06/22/20 08:00 36.7 C 71 16 143/79 H 92 L 06/22/20 05:58 92 L 06/22/20 04:00 35.9 C L 56 L 12 153/79 H 93 L - Problem List & Annotations (1) Pneumonia due to COVID-19 virus SNOMED Code(s): 989985853254795690 Code(s): U07.1 - COVID-19; J12.89 - OTHER VIRAL PNEUMONIA Status: Acute Priority: High Current Visit: Yes (2) CHF (congestive heart failure) SNOMED Code(s): 94508204 Code(s): I50.9 - HEART FAILURE, UNSPECIFIED Status: Acute Priority: High Current Visit: Yes Qualifiers: Heart failure type: combined systolic and diastolic Heart failure chronicity: chronic Qualified Code(s): I50.42 - Chronic combined systolic (congestive) and diastolic (congestive) heart failure - Problem List Review Problem List Initiated/Reviewed/Updated: Yes - My Orders Last 24 Hours: My Active Orders 06/22/20 05:11 BASIC METABOLIC PANEL,BMP [CHEM] AM CBC WITH AUTO DIFF [HEME] AM CRP, HIGH SENSITIVITY [REF] Routine D-DIMER QUANTITATIVE [COAG] AM - Plan Plan:: 06/17/2020 79-year-old female with COPD transferred from [facility] as a direct admit with pneumonia secondary to COVID-19 * Patient requiring 2 L nasal cannula to keep her oxygen saturations in the 90s. * She is on 2 L nasal cannula when she sleeps at home due to COPD and CHF. * Received first dose of dexamethasone 6 mg and Lovenox 40 mg at [facility]. * Minimal respiratory distress * Initial WBC 4.11, INR 1.04, d-dimer 0.71, lactic acid 1.1, CRP 4.4, proBNP 431, albumin 3.0, ABG: pH 7.42, PCO2 of 35.5, PO2 of 71.0, HCO3 22.6, O2 saturation 93.4% on 2 L FiO2 CHF/coronary artery disease/hypertension * BNP normal on admission. * Blood pressure well controlled initially. * Bumex 2 mg twice daily, aspirin 81 mg daily, losartan 50 mg daily * No chest pain Acute versus acute on chronic renal insufficiency * BUN 14, creatinine 1.6, estimated GFR 31, sodium 135 * Unknown history of kidney disease Hypothyroidism Postmenopausal symptoms * Levothyroxine 75 mcg daily * Estradiol 1 mg daily 06/18/2020 Pneumonia secondary to COVID-19 * Significant improvement in oxygenation * Day 2 of dexamethasone, remdesivir, CHF, CAD, hypertension * Blood pressure well controlled Acute versus chronic renal insufficiency * Recheck labs in the morning 06/19/2020 Pneumonia secondary to COVID-19 * Continued improvement in oxygenation * Day 3 of dexamethasone, remdesivir, * Received convalescent plasma CHF, CAD, hypertension * Blood pressure well controlled * Awaiting echocardiogram results Acute versus chronic renal insufficiencyimproving * Recheck labs in the morning 06/20/2020 Pneumonia secondary to COVID-19 * Continued improvement in oxygenation * Day 4 of dexamethasone and remdesivir * Received convalescent plasma * CRP down to 3.2, d-dimer normal at 0.45, WBC 6.83 CHF, CAD, hypertension * Blood pressure well controlled * Awaiting echocardiogram results Acute versus chronic renal insufficiencyimproving * GFR has improved. GFR 48, creatinine 1.1. Plan * Dexamethasone day 4 * Remdesivir day 4 of * Follow CBC, CMP, d-dimer, CRP * IV Lasix as needed * FiO2 to keep SPO2 greater than 87% and less than 95% * Continue home rate of FiO2 at 2 L nasal cannula while asleep * She should be ready for discharge on Tuesday. VTE prophylaxis with Lovenox CODE STATUS: Full code Disposition: Admit to floor for treatment of pneumonia secondary to COVID-19 06/21/2020 The patient has exhibited some improvement in her oxygenation and her pulse oximetry will continue to be monitored and adjusted as necessary. Repeat laboratories have been ordered. She will be continued on dexamethasone and remdesivir. The patient will be continued on appropriate diet. G OT will be ordered. Repeat chest x-ray will be necessary prior to going home. This is been ordered. 06/22/2020 The patient is still feeling somewhat weak today. We will continue with her current treatment for her room to severe and dexamethasone. Patient will also be kept on excision to keep her saturations above 90%. She will be continued on her current diet. DVT with Lovenox will also continue. Patient has been encouraged to ambulate. X-ray will be ordered for the morning. She has been encouraged to ambulate.
[2020-06-22] MEDS: Gabapentin 100 MG Cap PO SCH (21:24)
[2020-06-22] MEDS: Mirtazapine 15 MG Tab PO SCH (21:31)
[2020-06-23] MEDS ORDERED: Furosemide 20 MG/2 ML VIAL IVPUSH ONE (07:51)
--- NOTE | 2020-06-23 07:53 | PCM.PN ---
- Patient Data Vitals - Most Recent: Last Vital Signs Temp 36.3 C 06/23/20 04:33 Pulse 81 06/23/20 04:33 Resp 20 06/23/20 04:33 BP 149/92 H 06/23/20 04:00 Pulse Ox 91 L 06/23/20 05:45 Weight - Most Recent: 83.642 kg I&O - Last 24 Hours: Intake & Output 06/22/20 06/23/20 06/23/20 22:59 06:59 14:59 Intake Total 250 Balance 250 Lab Results Last 24 Hours: Laboratory Results - last 24 hr 06/23/20 Range/Units 06:51 WBC 16.92 H (3.98-10.04) K/mm3 RBC 4.98 (3.98-5.22) M/mm3 Hgb 15.3 D (11.2-15.7) gm/dl Hct 47.2 H (34.1-44.9) % MCV 94.8 (79.4-94.8) fl MCH 30.7 (25.6-32.2) pg MCHC 32.4 (32.2-35.5) g/dl RDW Std Deviation 45.4 (36.4-46.3) fL Plt Count 326 D (182-369) K/mm3 MPV 9.6 (9.4-12.3) fl Neut % (Auto) 84.6 H (34.0-71.1) % Lymph % (Auto) 7.4 L (19.3-51.7) % [place] % (Auto) 7.5 (4.7-12.5) % Eos % (Auto) 0 L (0.7-5.8) Baso % (Auto) 0.1 (0.1-1.2) % Neut # (Auto) 14.32 H (1.56-6.13) K/mm3 Lymph # (Auto) 1.25 (1.18-3.74) K/mm3 [place] # (Auto) 1.27 H (0.24-0.36) K/mm3 Eos # (Auto) 0.00 L (0.04-0.36) K/mm3 Baso # (Auto) 0.01 (0.01-0.08) K/mm3 Aj Results Last 24 Hours: Microbiology 06/17/20 23:24 Aerobic Blood Culture - Preliminary Blood NO GROWTH AFTER 5 DAYS Anaerobic Blood Culture - Final Med Orders - Current: Current Medications Acetaminophen (Tylenol) 650 mg PO Q4H PRN PRN Reason: Pain (Mild 1-3)/fever Albuterol (Proventil Hfa) 0 gm INH Q4H PRN PRN Reason: Shortness of Breath Aspirin (Halfprin) 81 mg PO DAILY [facility] Last Admin: 06/22/20 08:15 Dose: 81 mg Documented by: Bumetanide (Bumex) 2 mg PO BIDDIURETIC [facility] Last Admin: 06/22/20 14:34 Dose: 2 mg Documented by: Cyanocobalamin (Vitamin B12) 1,000 mcg PO DAILY [facility] Last Admin: 06/22/20 08:15 Dose: 1,000 mcg Documented by: Dexamethasone (Dexamethasone) 6 mg PO DAILY [facility] Stop: 06/27/20 09:01 Last Admin: 06/22/20 08:14 Dose: 6 mg Documented by: Enoxaparin Sodium (Lovenox) 40 mg SUBCUT DAILY [facility] Last Admin: 06/22/20 08:16 Dose: 40 mg Documented by: Estradiol (Estradiol) 1 mg PO DAILY [facility] Last Admin: 06/22/20 08:16 Dose: 1 mg Documented by: Gabapentin (Neurontin) 200 mg PO BEDTIME [facility] Last Admin: 06/22/20 21:24 Dose: 200 mg Documented by: Levothyroxine Sodium (Levothyroxine) 75 mcg PO ACBREAKFAST [facility] Last Admin: 06/22/20 06:27 Dose: 75 mcg Documented by: Losartan Potassium (Cozaar) 50 mg PO DAILY [facility] Last Admin: 06/22/20 08:15 Dose: 50 mg Documented by: Mirtazapine (Remeron) 15 mg PO BEDTIME [facility] Last Admin: 06/22/20 21:31 Dose: 15 mg Documented by: Ondansetron HCl (Zofran) 4 mg IV Q4H PRN PRN Reason: Nausea/Vomiting Fluticasone/Umeclidin/Vilanter Inhaler 0 each INH DAILY [facility] Last Admin: 06/22/20 08:17 Dose: 1 each Documented by: Polyethylene Glycol (Miralax) 17 gm PO Q48H [facility] Last Admin: 06/21/20 09:30 Dose: 17 gm Documented by: Sodium Chloride (Saline Flush) 10 ml FLUSH ASDIRECTED PRN PRN Reason: Keep Vein Open Discontinued Medications Dexamethasone (Dexamethasone) 6 mg IVPUSH DAILY [facility] Stop: 06/27/20 09:01 Last Admin: 06/18/20 08:50 Dose: 6 mg Documented by: Furosemide (Lasix) 20 mg IVPUSH NOW ONE Stop: 06/18/20 09:35 Last Admin: 06/18/20 09:53 Dose: 20 mg Documented by: Furosemide (Lasix) 20 mg IVPUSH NOW ONE Stop: 06/23/20 07:52 Remdesivir 200 mg/ Sodium (Chloride) 250 mls @ 250 mls/hr IV ONETIME ONE Stop: 06/17/20 22:03 Last Admin: 06/17/20 23:25 Dose: 250 mls/hr Documented by: Remdesivir 100 mg/ Sodium (Chloride) 100 mls @ 100 mls/hr IV DAILY [facility] Stop: 06/22/20 22:16 Remdesivir 100 mg/ Sodium (Chloride) 100 mls @ 100 mls/hr IV Q24H [facility] Stop: 06/21/20 22:59 Last Admin: 06/21/20 22:00 Dose: 100 mls/hr Documented by: Sodium Chloride (Normal Saline) Confirm Administered Dose 250 mls @ as directed .ROUTE .STK-MED ONE Stop: 06/18/20 08:15 Last Admin: 06/18/20 08:56 Dose: 50 mls/hr Documented by: Magnesium Sulfate (Magnesium Sulfate In Water Premix) 2 gm in 50 mls @ 25 mls/hr IV ONETIME ONE Stop: 06/19/20 18:59 Last Admin: 06/19/20 17:04 Dose: 25 mls/hr Documented by: Sodium Chloride (Saline Flush) 10 ml FLUSH ASDIRECTED PRN PRN Reason: Keep Vein Open Sepsis Event Note - Evaluation Sepsis Screening Result: No Definite Risk - Focused Exam Vital Signs: Vital Signs Temp Pulse Pulse Resp BP BP Pulse Ox 06/23/20 05:45 06/23/20 04:33 36.3 C 81 20 89 L 06/23/20 04:00 149/92 H 06/23/20 01:09 06/23/20 01:00 06/23/20 00:21 36.4 C 18 157/86 H 06/23/20 00:13 06/23/20 00:00 72 89 L 06/22/20 21:29 36.5 C 70 86 L 06/22/20 21:08 06/22/20 20:00 18 133/62 Pulse Ox Pulse Ox 06/23/20 05:45 91 L 06/23/20 04:33 06/23/20 04:00 06/23/20 01:09 92 L 06/23/20 01:00 96 06/23/20 00:21 06/23/20 00:13 89 L 06/23/20 00:00 06/22/20 21:29 06/22/20 21:08 89 L 06/22/20 20:00 - Problem List & Annotations (1) Pneumonia due to COVID-19 virus SNOMED Code(s): 351638056754014939 Code(s): U07.1 - COVID-19; J12.89 - OTHER VIRAL PNEUMONIA Status: Acute Priority: High Current Visit: Yes (2) CHF (congestive heart failure) SNOMED Code(s): 95374251 Code(s): I50.9 - HEART FAILURE, UNSPECIFIED Status: Acute Priority: High Current Visit: Yes Qualifiers: Heart failure type: combined systolic and diastolic Heart failure chronicity: chronic Qualified Code(s): I50.42 - Chronic combined systolic (congestive) and diastolic (congestive) heart failure - My Orders Last 24 Hours: My Active Orders 06/23/20 01:00 Oxygen Therapy Adult [Oxygen Therapy] [RC] ASDIRECTED 06/23/20 05:11 Chest 1V Frontal [CR] AM 06/23/20 06:51 BASIC METABOLIC PANEL,BMP [CHEM] AM CBC WITH AUTO DIFF [HEME] AM 06/23/20 07:51 Furosemide [Lasix] 20 mg IVPUSH NOW ONE - Plan Plan:: 06/17/2020 79-year-old female with COPD transferred from [facility] as a direct admit with pneumonia secondary to COVID-19 * Patient requiring 2 L nasal cannula to keep her oxygen saturations in the 90s. * She is on 2 L nasal cannula when she sleeps at home due to COPD and CHF. * Received first dose of dexamethasone 6 mg and Lovenox 40 mg at [facility]. * Minimal respiratory distress * Initial WBC 4.11, INR 1.04, d-dimer 0.71, lactic acid 1.1, CRP 4.4, proBNP 431, albumin 3.0, ABG: pH 7.42, PCO2 of 35.5, PO2 of 71.0, HCO3 22.6, O2 saturation 93.4% on 2 L FiO2 CHF/coronary artery disease/hypertension * BNP normal on admission. * Blood pressure well controlled initially. * Bumex 2 mg twice daily, aspirin 81 mg daily, losartan 50 mg daily * No chest pain Acute versus acute on chronic renal insufficiency * BUN 14, creatinine 1.6, estimated GFR 31, sodium 135 * Unknown history of kidney disease Hypothyroidism Postmenopausal symptoms * Levothyroxine 75 mcg daily * Estradiol 1 mg daily 06/18/2020 Pneumonia secondary to COVID-19 * Significant improvement in oxygenation * Day 2 of dexamethasone, remdesivir, CHF, CAD, hypertension * Blood pressure well controlled Acute versus chronic renal insufficiency * Recheck labs in the morning 06/19/2020 Pneumonia secondary to COVID-19 * Continued improvement in oxygenation * Day 3 of dexamethasone, remdesivir, * Received convalescent plasma CHF, CAD, hypertension * Blood pressure well controlled * Awaiting echocardiogram results Acute versus chronic renal insufficiencyimproving * Recheck labs in the morning 06/20/2020 Pneumonia secondary to COVID-19 * Continued improvement in oxygenation * Day 4 of dexamethasone and remdesivir * Received convalescent plasma * CRP down to 3.2, d-dimer normal at 0.45, WBC 6.83 CHF, CAD, hypertension * Blood pressure well controlled * Awaiting echocardiogram results Acute versus chronic renal insufficiencyimproving * GFR has improved. GFR 48, creatinine 1.1. Plan * Dexamethasone day 4 * Remdesivir day 4 of * Follow CBC, CMP, d-dimer, CRP * IV Lasix as needed * FiO2 to keep SPO2 greater than 87% and less than 95% * Continue home rate of FiO2 at 2 L nasal cannula while asleep * She should be ready for discharge on Tuesday. VTE prophylaxis with Lovenox CODE STATUS: Full code Disposition: Admit to floor for treatment of pneumonia secondary to COVID-19 06/21/2020 The patient has exhibited some improvement in her oxygenation and her pulse oximetry will continue to be monitored and adjusted as necessary. Repeat laboratories have been ordered. She will be continued on dexamethasone and remdesivir. The patient will be continued on appropriate diet. G OT will be ordered. Repeat chest x-ray will be necessary prior to going home. This is been ordered. 06/22/2020 The patient is still feeling somewhat weak today. We will continue with her current treatment for her room to severe and dexamethasone. Patient will also be kept on excision to keep her saturations above 90%. She will be continued on her current diet. DVT with Lovenox will also continue. Patient has been encouraged to ambulate. X-ray will be ordered for the morning. She has been encouraged to ambulate.
[2020-06-23] MEDS ORDERED: Azithromycin 500 MG AdvVial IV SCH (08:00)
[2020-06-23] MEDS ORDERED: Azithromycin 500 MG in Sodium Chloride 0.9% 250 ML IV SCH (08:00)
[2020-06-23] MEDS ORDERED: cefTRIAXone 2 GM in Sodium Chloride 0.9% 100 ML IV SCH (09:00)
[2020-06-23] MEDS ORDERED: Sodium Chloride 0.9% 500 ML ONE (09:13)
--- NOTE | 2020-06-23 09:25 | PCM.SN.2 ---
- Free Text/Narrative Note: 0845 called to ICU room 23 for emergency intubation pre O2 IV 2ml versed 100mg propofol and 100mg Anectine cricoid pressure DVC #7.5 OETT 21cm at lip secured by RT positive CO2 color change bilateral breath sounds positive hand off to respiratory care out of room at 0905
[2020-06-23] MEDS ORDERED: fentaNYL 2,500 MCG in Sodium Chloride 0.9% 200 ML IV SCH (09:30)
[2020-06-23] MEDS ORDERED: Midazolam 50 MG in Sodium Chloride 0.9% 40 ML IV SCH (09:30)
--- NOTE | 2020-06-23 09:56 | PCM.PRNOTE ---
- Free Text/Narrative Note: Procedure: central line placement Indication: shock Report: Written consent was obtained prior to the patient being intubated and placed on mechanical ventilation. The left chest was prepped and draped in sterile fashion. 2 cc 1 % lidocaine was injected at the mid-infraclavicular area. A large gauge needle on a syringe was inserted into the left subclavian vein on first pass; dark blood was aspirated. A guidewire was passed without resistance through the needle and the needle removed. A small stab incision was made at the insertion site of the wire, and a dilator passed in preparation for line placement. A triple lumen catheter was then threaded over the wire using Seldinger technique. The wire was withdrawn, and all ports of the line flushed and withdrew without issue. The line was secured to the skin with silk sutures and a sterile dressing was applied. A confirmatory chest x-ray was ordered.
--- NOTE | 2020-06-23 10:02 | PCM.PRNOTE ---
- Free Text/Narrative Note: Procedure: arterial line placement Indication: profound hypotension Report: The left wrist was placed in supinated position and prepped and draped in sterile fashion. An ultrasound with sterile cover was used to identify the left radial artery. The Arrow arterial catheter on a needle was inserted into the arterial lumen under ultrasound guidance. blood backfilled the catheter, and the guidewire was passed forward fully without resistance. The catheter was then inserted well into the artery and the needle removed. The transducer showed a good arterial waveform. The catheter was secured at the skin with a silk suture and dressed with a sterile dressing.
[2020-06-23] MEDS: FLUTICASONE INH SCH (10:13)
[2020-06-23] MEDS: VILANTER INH SCH (10:13)
[2020-06-23] MEDS: UMECLIDIN INH SCH (10:13)
--- NOTE | 2020-06-23 10:30 | PCM.DCSUM1 ---
Discharge Summary - Hospital Course Free Text/Narrative:: The patient was admitted June 18, 2020 due to viral pneumonia from COVID-19. Diagnosis: Stroke: No - Discharge Data Discharge Date: 06/23/20 Discharge Disposition: DC/Tfer to Acute Hospital 02 Condition: Serious - Referral to Home Health Primary Care Physician: Merly Santos III, MD - Discharge Diagnosis/Problem(s) (1) Pneumonia due to COVID-19 virus SNOMED Code(s): 955630110548392776 ICD Code: U07.1 - COVID-19; J12.89 - OTHER VIRAL PNEUMONIA Status: Acute Priority: High Current Visit: Yes (2) CHF (congestive heart failure) SNOMED Code(s): 77600772 ICD Code: I50.9 - HEART FAILURE, UNSPECIFIED Status: Acute Priority: High Current Visit: Yes Qualifiers: Heart failure type: combined systolic and diastolic Heart failure chronicity: chronic Qualified Code(s): I50.42 - Chronic combined systolic (congestive) and diastolic (congestive) heart failure - Patient Summary/Data Consults: Consultations 06/17/20 22:02 Respiratory Care Assess and Treatment [CONS] Routine 06/18/20 10:39 PT Evaluation and Treatment [CONS] Routine Hospital Course: Patient is a 79-year-old lady who was admitted on June 18, 2020 due to a viral pneumonia with COVID-19 positive. The patient also has a past medical history of COPD, coronary artery disease with bypass, ischemic stroke, hypertension and encephalopathy due to a viral illness. She is currently a resident of a snf. The patient also is a full code. The patient had been started on COVID- 19 protocol to include convalescent plasma, antiviral remdesivir, dexamethasone. The patient had tolerated these medications well. Patient had been initially in the intensive care unit and had improved sufficiently yesterday to be discharged from the intensive care unit. On day of discharge/transfer the patient was noted to be in respiratory distress tachypneic with respiration rate of 36/min. The patient was also somewhat lethargic and not responding and her pulse oximetry was in the upper 70s. The patient was then placed on BiPAP and blood gas obtained showed an affinity O2 of 52. The patient was noted to have vital signs prior to intubation with a heart rate of 109, blood pressure was 73/49, PaO2 was 87 and respirations were 36. Laboratory studies on day of discharge showed a white blood cell count of 16.9. Her hemoglobin was 15.3 g/dL. The patient also had a chest x-ray which showed worsening airspace disease and worsening pneumonia. Also of note was that the patient's BUN was at 56 and a creatinine was at 1.9. The patient had an arterial line inserted as well as central line and she was started on Levophed to titrate up to keep blood pressures around 100 systolic. The patient then was intubated and she is currently on 500 mL tidal volume with 18 respirations per minute and 10 of PEEP. Patient's current vital signs showed a heart rate of 136 her blood pressure was up to 67/ millimeters of mercury and she was also on 15 mcg of Levophed. Patient's oxygen saturation was at 94%. The patient's vital signs will be stabilized prior to transfer. The patient has been accepted at [facility] [place] intensive care unit. Dr. Power has accepted. Patient has been discharged to acute hospital intubated and sedated. - Patient Instructions Diet: NPO - Discharge Plan *PRESCRIPTION DRUG MONITORING PROGRAM REVIEWED*: No *COPY OF PRESCRIPTION DRUG MONITORING REPORT IN PATIENT NEVA: No Home Medications: Home Meds Azithromycin [Zithromax] 500 mg IV Q24H adv 06/23/20 [Rx] Enoxaparin [Lovenox] 40 mg SUBCUT DAILY syringe 06/23/20 [Rx] Midazolam [Versed 5 MG/ML] 50 mg IV TITRATE vial 06/23/20 [Rx] Norepinephrine [Levophed] 4 mg IV TITRATE sdv 06/23/20 [Rx] Sodium Chloride 0.9% [Normal Saline (AdvBag)] 250 ml IV Q24H advbag 06/23/20 [Rx] Sodium Chloride 0.9% [Normal Saline] 250 ml IV TITRATE bag 06/23/20 [Rx] cefTRIAXone [Rocephin] 2 gm IV Q24H adv 06/23/20 [Rx] dexAMETHasone [Dexamethasone] 6 mg PO DAILY tablet 06/23/20 [Rx] fentaNYL [Sublimaze] 2,500 mcg IV TITRATE sdv 06/23/20 [Rx] Oxygen Therapy Mode: Trans-tracheal Oxygen FiO2: 100 - Discharge Summary/Plan Comment DC Time >30 min.: Yes - General Info Date of Service: 06/23/20 Admission Dx/Problem (Free Text: Admission Diagnosis/Problem Admission Diagnosis/Problem Viral pneumonia Subjective Update: Patient intubated and sedated - Patient Data Vitals - Most Recent: Last Vital Signs Temp 36.3 C 06/23/20 04:33 Pulse 109 H 06/23/20 08:07 Resp 20 06/23/20 04:33 BP 73/49 L 06/23/20 08:07 Pulse Ox 87 L 06/23/20 08:07 Weight - Most Recent: 83.642 kg I&O - Last 24 hours: Intake & Output 06/22/20 06/23/20 06/23/20 22:59 06:59 14:59 Intake Total 250 Balance 250 Lab Results - Last 24 hrs: Laboratory Results - last 24 hr 06/23/20 06/23/20 06/23/20 Range/Units 06:51 06:51 08:22 WBC 16.92 H (3.98-10.04) K/mm3 RBC 4.98 (3.98-5.22) M/mm3 Hgb 15.3 D (11.2-15.7) gm/dl Hct 47.2 H (34.1-44.9) % MCV 94.8 (79.4-94.8) fl MCH 30.7 (25.6-32.2) pg MCHC 32.4 (32.2-35.5) g/dl RDW Std Deviation 45.4 (36.4-46.3) fL Plt Count 326 D (182-369) K/mm3 MPV 9.6 (9.4-12.3) fl Neut % (Auto) 84.6 H (34.0-71.1) % Lymph % (Auto) 7.4 L (19.3-51.7) % [place] % (Auto) 7.5 (4.7-12.5) % Eos % (Auto) 0 L (0.7-5.8) Baso % (Auto) 0.1 (0.1-1.2) % Neut # (Auto) 14.32 H (1.56-6.13) K/mm3 Lymph # (Auto) 1.25 (1.18-3.74) K/mm3 [place] # (Auto) 1.27 H (0.24-0.36) K/mm3 Eos # (Auto) 0.00 L (0.04-0.36) K/mm3 Baso # (Auto) 0.01 (0.01-0.08) K/mm3 Manual Slide Review Normal smear Puncture Site Rt radial ABG pH 7.54 H (7.35-7.45) ABG pCO2 27.6 L (35.0-45.0) mmHg ABG pO2 52.0 L (80.0-100.0) mmHg ABG HCO3 23.3 (22.0-26.0) meq/L ABG O2 Saturation 83.2 L (96.0-97.0) % ABG Base Excess 2.2 H (-2-2.0) Ted Test Positive O2 Delivery Device Bipap FiO2 100.00 (21.00-100.00) % Sodium 143 (136-145) mEq/L Potassium 3.8 (3.5-5.1) mEq/L Chloride 101 (98-107) mEq/L Carbon Dioxide 28 (21-32) mEq/L Anion Gap 17.8 H (5-15) BUN 56 H D (7-18) mg/dL Creatinine 1.9 H (0.55-1.02) mg/dL Est Cr Clr Drug Dosing 21.60 mL/min Estimated GFR (MDRD) 26 (>60) mL/min BUN/Creatinine Ratio 29.5 H (14-18) Glucose 121 H (83-115) mg/dL Calcium 8.7 (8.5-10.1) mg/dL TALYA Results - Last 24 hrs: Microbiology 06/17/20 23:24 Aerobic Blood Culture - Preliminary Blood NO GROWTH AFTER 5 DAYS Anaerobic Blood Culture - Final Med Orders - Current: Current Medications Acetaminophen (Tylenol) 650 mg PO Q4H PRN PRN Reason: Pain (Mild 1-3)/fever Albuterol (Proventil Hfa) 0 gm INH Q4H PRN PRN Reason: Shortness of Breath Aspirin (Halfprin) 81 mg PO DAILY [facility] Last Admin: 06/22/20 08:15 Dose: 81 mg Documented by: Bumetanide (Bumex) 2 mg PO BIDDIURETIC [facility] Last Admin: 06/22/20 14:34 Dose: 2 mg Documented by: Cyanocobalamin (Vitamin B12) 1,000 mcg PO DAILY [facility] Last Admin: 06/22/20 08:15 Dose: 1,000 mcg Documented by: Dexamethasone (Dexamethasone) 6 mg PO DAILY [facility] Stop: 06/27/20 09:01 Last Admin: 06/22/20 08:14 Dose: 6 mg Documented by: Enoxaparin Sodium (Lovenox) 40 mg SUBCUT DAILY [facility] Last Admin: 06/22/20 08:16 Dose: 40 mg Documented by: Estradiol (Estradiol) 1 mg PO DAILY [facility] Last Admin: 06/22/20 08:16 Dose: 1 mg Documented by: Gabapentin (Neurontin) 200 mg PO BEDTIME [facility] Last Admin: 06/22/20 21:24 Dose: 200 mg Documented by: Ceftriaxone Sodium 2 gm/ (Sodium Chloride) 100 mls @ 200 mls/hr IV Q24H [facility] Azithromycin 500 mg/ Sodium (Chloride) 250 mls @ 250 mls/hr IV Q24H [facility] Norepinephrine Bitartrate 4 mg (/ Dextrose/Water) 250 mls @ 7.5 mls/hr IV TITRATE [facility]; Protocol Last Admin: 06/23/20 08:49 Dose: 2 mcg/min, 7.5 mls/hr Documented by: Midazolam HCl 50 mg/ Sodium (Chloride) 50 mls @ 1.673 mls/hr IV TITRATE [facility]; Protocol Fentanyl 2,500 mcg/ Sodium (Chloride) 250 mls @ 8.364 mls/hr IV TITRATE [facility]; Protocol Levothyroxine Sodium (Levothyroxine) 75 mcg PO ACBREAKFAST [facility] Last Admin: 06/22/20 06:27 Dose: 75 mcg Documented by: Losartan Potassium (Cozaar) 50 mg PO DAILY [facility] Last Admin: 06/22/20 08:15 Dose: 50 mg Documented by: Mirtazapine (Remeron) 15 mg PO BEDTIME [facility] Last Admin: 06/22/20 21:31 Dose: 15 mg Documented by: Ondansetron HCl (Zofran) 4 mg IV Q4H PRN PRN Reason: Nausea/Vomiting Fluticasone/Umeclidin/Vilanter Inhaler 0 each INH DAILY [facility] Last Admin: 06/23/20 10:13 Dose: Not Given Documented by: Polyethylene Glycol (Miralax) 17 gm PO Q48H [facility] Last Admin: 06/21/20 09:30 Dose: 17 gm Documented by: Sodium Chloride (Saline Flush) 10 ml FLUSH ASDIRECTED PRN PRN Reason: Keep Vein Open Discontinued Medications Azithromycin (Zithromax) 500 mg IV Q24H [facility] Dexamethasone (Dexamethasone) 6 mg IVPUSH DAILY [facility] Stop: 06/27/20 09:01 Last Admin: 06/18/20 08:50 Dose: 6 mg Documented by: Furosemide (Lasix) 20 mg IVPUSH NOW ONE Stop: 06/18/20 09:35 Last Admin: 06/18/20 09:53 Dose: 20 mg Documented by: Furosemide (Lasix) 20 mg IVPUSH NOW ONE Stop: 06/23/20 07:52 Last Admin: 06/23/20 07:57 Dose: 20 mg Documented by: Remdesivir 200 mg/ Sodium (Chloride) 250 mls @ 250 mls/hr IV ONETIME ONE Stop: 06/17/20 22:03 Last Admin: 06/17/20 23:25 Dose: 250 mls/hr Documented by: Remdesivir 100 mg/ Sodium (Chloride) 100 mls @ 100 mls/hr IV DAILY [facility] Stop: 06/22/20 22:16 Remdesivir 100 mg/ Sodium (Chloride) 100 mls @ 100 mls/hr IV Q24H [facility] Stop: 06/21/20 22:59 Last Admin: 06/21/20 22:00 Dose: 100 mls/hr Documented by: Sodium Chloride (Normal Saline) Confirm Administered Dose 250 mls @ as directed .ROUTE .STK-MED ONE Stop: 06/18/20 08:15 Last Admin: 06/18/20 08:56 Dose: 50 mls/hr Documented by: Magnesium Sulfate (Magnesium Sulfate In Water Premix) 2 gm in 50 mls @ 25 mls/hr IV ONETIME ONE Stop: 06/19/20 18:59 Last Admin: 06/19/20 17:04 Dose: 25 mls/hr Documented by: Sodium Chloride (Normal Saline) Confirm Administered Dose 500 mls @ as directed .ROUTE .STK-MED ONE Stop: 06/23/20 09:14 Sodium Chloride (Saline Flush) 10 ml FLUSH ASDIRECTED PRN PRN Reason: Keep Vein Open - Exam Quality Assessment: Reports: Supplemental Oxygen General: Denies: Alert, Oriented Neck: Reports: Supple, Trachea Midline (Bated) Lungs: Reports: Crackles, Rales (Laterally) Cardiovascular: Reports: Tachycardia GI/Abdominal Exam: Normal Bowel Sounds, No Distention (Female) Exam: Deferred Rectal (Female) Exam: Deferred Back Exam: Reports: Full Range of Motion (Age-appropriate). Denies: Normal Inspection (Kyphosis) Extremities: Normal Inspection, No Pedal Edema Skin: Reports: Warm, Dry, Intact Psy/Mental Status: Denies: Alert, Normal Affect
[2020-06-23] MEDS ORDERED: Propofol 200 MG/20 ML SDV ONE (11:00)
[2020-06-23] MEDS ORDERED: Succinylcholine 200 MG/10 ML MDV ONE (11:00)
[2020-06-23] MEDS ORDERED: Midazolam 5 MG/ML 5 ML MDV ONE (11:00)
== END 2020-06-23 12:06 | DRG 208 ==
LOC: JD.ICU 20:35 → JD.MS 06-22 14:34 → JD.ICU 06-23 08:59
PROVIDERS: ADMIT Internal Medicine; ATTEND Internal Medicine
PROC: XW033E5 Introduction of Remdesivir Anti-infective into Peripheral Vein, Percutaneous Approach, New Technology Group 5 (ICD-10-PCS; 2020-06-17)
PROC: 8E0ZXY6 Isolation (ICD-10-PCS; 2020-06-17)
PROC: XW13325 Transfusion of Convalescent Plasma (Nonautologous) into Peripheral Vein, Percutaneous Approach, New Technology Group 5 (ICD-10-PCS; 2020-06-18)
PROC: 03HY32Z Insertion of Monitoring Device into Upper Artery, Percutaneous Approach (ICD-10-PCS; principal; 2020-06-23)
PROC: 5A1935Z Respiratory Ventilation, Less than 24 Consecutive Hours (ICD-10-PCS; 2020-06-23)
PROC: 05H633Z Insertion of Infusion Device into Left Subclavian Vein, Percutaneous Approach (ICD-10-PCS; 2020-06-23)
PROC: 0BH17EZ Insertion of Endotracheal Airway into Trachea, Via Natural or Artificial Opening (ICD-10-PCS; 2020-06-23)
PROC: 3E033XZ Introduction of Vasopressor into Peripheral Vein, Percutaneous Approach (ICD-10-PCS; 2020-06-23)
DX: U07.1 COVID-19 (principal); J12.89 Other viral pneumonia; I50.42 Chronic combined systolic (congestive) and diastolic (congestive) heart failure; J44.0 Chronic obstructive pulmonary disease with (acute) lower respiratory infection; N17.9 Acute kidney failure, unspecified; I13.0 Hypertensive heart and chronic kidney disease with heart failure and stage 1 through stage 4 chronic kidney disease, or unspecified chronic kidney disease; G93.40 Encephalopathy, unspecified; I25.10 Atherosclerotic heart disease of native coronary artery without angina pectoris; E03.9 Hypothyroidism, unspecified; E78.5 Hyperlipidemia, unspecified; R41.3 Other amnesia; N18.9 Chronic kidney disease, unspecified; E78.00 Pure hypercholesterolemia, unspecified; I69.328 Other speech and language deficits following cerebral infarction; Z88.8 Allergy status to other drugs, medicaments and biological substances; Z79.82 Long term (current) use of aspirin; Z79.890 Hormone replacement therapy; Z79.899 Other long term (current) drug therapy; Z87.891 Personal history of nicotine dependence; Z90.710 Acquired absence of both cervix and uterus
CPT/HCPCS: 31500; 36415; 36430; 36600; 51702; 71045; 80048; 80053; 80076; 81003; 82728; 82803; 83605; 83615; 83735; 83880; 84100; 84145; 85025; 85379; 85610; 85730; 86140; 86900; 86901; 87040; 93005; 93308; 94002; 94640; 94668; 94761; 97110-GP; 97162-GP; 97530-GP; A9270-GY; J0330; J1100; J1650; J1940; J2250; J2704; J3010; J3475; J7050; J7060; J8540; P9017